=== PATIENT | female | born 1935 | race Caucasian/White ===

== ENCOUNTER 2019-11-02 21:47 | Emergency (ER) | payer OTHER ==
[~2019-11-02] VITALS: Ht 157.5 cm; Wt 81.7 kg
[~2019-11-02 21:47] MED LIST: ALBIPROI; ALBU90OI INH; ASPI81CH PO; Aspir-Trin325 MG PO; BENZ100A PO; CALCAVITD PO; CALCIUM PO; CIPR500 PO; CONESTTC PV; Colace100 MG PO; DICMIS75EC PO; DOXA2 PO; DOXA4; DOXA4 PO; ESTRTP VAG; FLOVENT; FLUC100 PO; FLUSAL1005 IH; FLUSAL1005 INH; FLUT110OIA INH; FOLI400 PO; FURO20 PO; FURO40 PO; GLUCHON PO; HYDSUL200 PO; IRON PO; LORA1; LORA1 PO; METTREX2.5 PO; MONT10T; MONT10T PO; NABU500 PO; NIAC500ER; OMEP20ER PO; ONDA4ODT MM; OXYACE5T PO; OXYC5; OXYC5 PO; Omeprazole20 M1 PO; POTA10T PO; POTCHL20ER PO; PRED20 PO; PRED5 PO; PROM25 PO; Prilosec Otc20 MG; RXONDA4ODT MM; TRAM50 PO; VALS80 PO; WARF2 PO; WARF4 PO
[2019-11-02 22:21] LABS: BASOPHILS ABSOLUTE AUTO 0.03 K/mm3 (0.00-0.23); BASOPHILS PERCENT AUTO 1 % (0-2); EOSINOPHILS ABSOLUTE AUTO 0.14 K/mm3 (0.00-0.68); EOSINOPHILS PERCENT AUTO 3 % (0-6); Hematocrit 37.5 % (33.0-51.0); Hemoglobin 11.8 g/dL (11.5-16.0); IMMATURE GRAN ABSOLUTE AUTO 0.01 K/mm3 (0.00-0.10); IMMATURE GRAN PERCENT AUTO 0 % (0-1); LYMPHOCYTES ABSOLUTE AUTO 0.91 K/mm3 (0.84-5.20); LYMPHOCYTES PERCENT AUTO 21 % (21-46); MONOCYTES ABSOLUTE AUTO 0.57 K/mm3 (0.16-1.47); MONOCYTES PERCENT AUTO 13 % (4-13); Mean Corpuscular HGB 28.4 pg (26.0-34.0); Mean Corpuscular HGB Conc 31.5 g/dL (31.5-36.5); Mean Corpuscular Volume 90 fL (80-100); Mean Platelet Volume 10.7 fL (9.1-12.4); NEUTROPHILS ABSOLUTE AUTO 2.68 K/mm3 (1.96-9.15); NEUTROPHILS PERCENT AUTO 62 % (41-73); Platelet Count 191 K/mm3 (150-400); RDW Coefficient Variation 14.5 % (11.7-14.2); RDW Standard Deviation 47.7 fL (35.1-46.3); Red Blood Cell Count 4.15 M/mm3 (3.80-5.20); White Blood Cell Count 4.34 K/mm3 (4.00-11.30)
[2019-11-02 22:39] LABS: Alanine Aminotransfer (ALT/SGP 24 U/L (12-78); Albumin, Blood 3.6 g/dL (3.4-5.0); Albumin/Globulin Ratio 1.1 (0.8-1.8); Alk Phos 99 U/L (50-136); Anion Gap 6 mmol/L (6-16); Aspartate Aminotrans (AST/SGOT 17 U/L (12-37); Bilirubin, Total 0.2 mg/dL (0.1-1.0); Blood Urea Nitrogen 23 mg/dL (8-24); Bun/Creatinine Ratio 28.9 (12.0-20.0); CO2, Blood 23 mmol/L (21-32); Calcium, Blood 8.8 mg/dL (8.5-10.1); Chloride, Blood 112 mmol/L (98-108); Globulin, Blood 3.4 g/dL (2.2-4.0); Glomerular Filtration Rate >60 (60-); Glucose, Blood 103 mg/dL (70-99); Potassium, Blood 3.9 mmol/L (3.5-5.5); Sodium, Blood 141 mmol/L (136-145)
[2019-11-02] MEDS ORDERED: Doxazosin Mesyla4 MG PO (23:05)
[2019-11-02] MEDS ORDERED: Hydroxychloroq200 MG PO (23:05)
[2019-11-02 23:51] LABS: Source, Urine Clean Catch
[2019-11-02 23:55] LABS: Appearance, Urine Hazy (Clear); Bilirubin, Urine Neg (Neg); Blood, Urine 4+ (Neg); Color, Urine Yellow (P-Yellow); Glucose Qualitative, Urine Neg (Neg); Ketones, Urine Neg (Neg); Leukocyte Esterase, Urine 3+ (Neg); Nitrite, Urine Pos (Neg); Protein, Urine Neg (Neg); Urobilinogen, Urine NORM (Normal)
[2019-11-03 00:02] LABS: Bacteria Many /hpf; Squamous Epithelial Cells Few /hpf (Few); White Blood Cells, Urine 50-100 /hpf (0-5)
[2019-11-03] MEDS ORDERED: CEFP200 PO ×2 (00:40→00:48)
== END 2019-11-03 00:55 | disposition home or self-care (01) ==
LOC: ER 21:47
PROVIDERS: Emergency Medicine
DX: N39.0 Urinary tract infection, site not specified (principal); I10 Essential (primary) hypertension; J45.909 Unspecified asthma, uncomplicated; Z88.5 Allergy status to narcotic agent; Z79.899 Other long term (current) drug therapy; Z79.51 Long term (current) use of inhaled steroids
CPT/HCPCS: 36415; 80053; 81001; 85025; 87077; 87086; 87186; 93005; 93010; 99283-25; A9270-GY

== ENCOUNTER → 2021-09-11 | Outpatient (CLI) | payer OTHER ==
[~2021-09-11] MED LIST changes: +CEFP200 PO; +Doxazosin Mesyla4 MG PO; +Hydroxychloroq200 MG PO
[2021-09-11 14:09] LABS: Source, Urine Clean Catch
[2021-09-11 15:18] LABS: Bilirubin, Urine Neg (Neg); Blood, Urine 3+ (Neg); Glucose Qualitative, Urine Neg (Neg); Ketones, Urine Neg (Neg); Leukocyte Esterase, Urine 3+ (Neg); Nitrite, Urine Neg (Neg); Protein, Urine Neg (Neg); Urobilinogen, Urine NORM (Normal)
[2021-09-11 15:32] LABS: Appearance, Urine Clear (Clear); Color, Urine Yellow (P-Yellow)
[2021-09-11 15:40] LABS: Bacteria Mod /hpf; Squamous Epithelial Cells Few /hpf (Few)
== END | disposition home or self-care (01) ==
LOC: LAB 14:00 → LAB SHORT 14:00
PROVIDERS: Internal Medicine
DX: R82.90 Unspecified abnormal findings in urine (principal)
CPT/HCPCS: 81001; 87077; 87086; 87186

== ENCOUNTER 2021-11-13 11:55 | Emergency (ER) | payer OTHER ==
[~2021-11-13] VITALS: Ht 157.5 cm; Wt 70.3 kg
[2021-11-13] MEDS ORDERED: MONT10T PO (12:19)
[2021-11-13] MEDS ORDERED: METTREX2.5 PO (12:20)
[2021-11-13] MEDS ORDERED: FLOVENT HFA12 GM (12:22)
[2021-11-13 12:36] LABS: Source, Urine Clean Catch
[2021-11-13 12:42] LABS: BASOPHILS ABSOLUTE AUTO 0.02 K/mm3 (0.00-0.23); BASOPHILS PERCENT AUTO 0 % (0-2); EOSINOPHILS ABSOLUTE AUTO 0.05 K/mm3 (0.00-0.68); EOSINOPHILS PERCENT AUTO 1 % (0-6); Hematocrit 32.4 % (33.0-51.0); Hemoglobin 10.5 g/dL (11.5-16.0); IMMATURE GRAN ABSOLUTE AUTO 0.03 K/mm3 (0.00-0.10); IMMATURE GRAN PERCENT AUTO 1 % (0-1); LYMPHOCYTES PERCENT AUTO 17 % (21-46); MONOCYTES ABSOLUTE AUTO 0.43 K/mm3 (0.16-1.47); MONOCYTES PERCENT AUTO 9 % (4-13); Mean Corpuscular HGB 27.9 pg (26.0-34.0); Mean Corpuscular HGB Conc 32.4 g/dL (31.5-36.5); Mean Corpuscular Volume 86 fL (80-100); Mean Platelet Volume 10.5 fL (9.1-12.4); NEUTROPHILS ABSOLUTE AUTO 3.53 K/mm3 (1.96-9.15); NEUTROPHILS PERCENT AUTO 73 % (41-73); Platelet Count 237 K/mm3 (150-400); RDW Coefficient Variation 13.8 % (11.7-14.2); RDW Standard Deviation 43.2 fL (35.1-46.3); Red Blood Cell Count 3.77 M/mm3 (3.80-5.20); White Blood Cell Count 4.86 K/mm3 (4.00-11.30)
[2021-11-13 12:47] LABS: Appearance, Urine Clear (Clear); Bilirubin, Urine Neg (Neg); Blood, Urine 2+ (Neg); Color, Urine Yellow (P-Yellow); Glucose Qualitative, Urine Neg (Neg); Ketones, Urine Neg (Neg); Leukocyte Esterase, Urine 3+ (Neg); Nitrite, Urine Neg (Neg); Protein, Urine Neg (Neg); Specific Gravity, Urine 1.005 (1.003-1.022); Urobilinogen, Urine NORM (Normal)
[2021-11-13 12:52] LABS: Alanine Aminotransfer (ALT/SGP 18 U/L (12-78); Albumin/Globulin Ratio 0.7 (0.8-1.8); Alk Phos 95 U/L (50-136); Anion Gap 8 mmol/L (6-16); Aspartate Aminotrans (AST/SGOT 19 U/L (12-37); Bilirubin, Total 0.5 mg/dL (0.1-1.0); Blood Urea Nitrogen 19 mg/dL (8-24); Bun/Creatinine Ratio 23.6 (12.0-20.0); CO2, Blood 25 mmol/L (21-32); Calcium, Blood 8.7 mg/dL (8.5-10.1); Chloride, Blood 106 mmol/L (98-108); Creatinine, Blood 0.81 mg/dL (0.40-1.00); Globulin, Blood 4.4 g/dL (2.2-4.0); Glomerular Filtration Rate >60 (60-); Glucose, Blood 102 mg/dL (70-99); Potassium, Blood 3.8 mmol/L (3.5-5.5); Sodium, Blood 139 mmol/L (136-145); Total Protein, Blood 7.4 g/dL (6.4-8.2)
[2021-11-13 12:55] LABS: Bacteria Few /hpf; Squamous Epithelial Cells Few /hpf (Few)
[2021-11-13] MEDS ORDERED: CEPH500 PO (14:26)
== END 2021-11-13 14:50 | disposition home or self-care (01) ==
LOC: ER 11:55
PROVIDERS: Physician Assistant
DX: N39.0 Urinary tract infection, site not specified (principal); I10 Essential (primary) hypertension; J45.909 Unspecified asthma, uncomplicated; M06.9 Rheumatoid arthritis, unspecified; Z79.82 Long term (current) use of aspirin; Z79.899 Other long term (current) drug therapy
CPT/HCPCS: 36415; 70450; 80053; 81001; 82140; 83605; 83690; 84484; 85025; 87086; 93005; 93010; 96374; 99285-25; J0696

== ENCOUNTER 2021-12-14 03:17 | Emergency (ER) | payer OTHER ==
[~2021-12-14] VITALS: Ht 157.5 cm; Wt 81.7 kg
[~2021-12-14 03:17] MED LIST changes: +CEPH500 PO; +FLOVENT HFA12 GM
[2021-12-14 04:01] LABS: BASOPHILS ABSOLUTE AUTO 0.04 K/mm3 (0.00-0.23); BASOPHILS PERCENT AUTO 1 % (0-2); EOSINOPHILS ABSOLUTE AUTO 0.14 K/mm3 (0.00-0.68); EOSINOPHILS PERCENT AUTO 2 % (0-6); Hematocrit 34.7 % (33.0-51.0); Hemoglobin 11.5 g/dL (11.5-16.0); IMMATURE GRAN ABSOLUTE AUTO 0.04 K/mm3 (0.00-0.10); IMMATURE GRAN PERCENT AUTO 1 % (0-1); LYMPHOCYTES ABSOLUTE AUTO 1.04 K/mm3 (0.84-5.20); LYMPHOCYTES PERCENT AUTO 18 % (21-46); MONOCYTES ABSOLUTE AUTO 0.57 K/mm3 (0.16-1.47); MONOCYTES PERCENT AUTO 10 % (4-13); Mean Corpuscular HGB 28.4 pg (26.0-34.0); Mean Corpuscular HGB Conc 33.1 g/dL (31.5-36.5); Mean Corpuscular Volume 86 fL (80-100); Mean Platelet Volume 10.6 fL (9.1-12.4); NEUTROPHILS ABSOLUTE AUTO 4.03 K/mm3 (1.96-9.15); NEUTROPHILS PERCENT AUTO 69 % (41-73); Platelet Count 186 K/mm3 (150-400); RDW Coefficient Variation 14.5 % (11.7-14.2); RDW Standard Deviation 45.3 fL (35.1-46.3); Red Blood Cell Count 4.05 M/mm3 (3.80-5.20); White Blood Cell Count 5.86 K/mm3 (4.00-11.30)
[2021-12-14 04:38] LABS: Albumin, Blood 3.2 g/dL (3.4-5.0); Albumin/Globulin Ratio 0.8 (0.8-1.8); Bilirubin, Total 0.4 mg/dL (0.1-1.0); Bun/Creatinine Ratio 23.9 (12.0-20.0); Creatinine, Blood 0.92 mg/dL (0.40-1.00); Globulin, Blood 3.8 g/dL (2.2-4.0); Potassium, Blood 4.3 mmol/L (3.5-5.5)
[2021-12-14] MEDS ORDERED: FAMO20 PO (05:34)
== END 2021-12-14 05:51 | disposition home or self-care (01) ==
LOC: ER 03:17
PROVIDERS: Student in an Organized Health Care Education/Training Program
DX: K29.70 Gastritis, unspecified, without bleeding (principal); I10 Essential (primary) hypertension; M06.9 Rheumatoid arthritis, unspecified; Z79.899 Other long term (current) drug therapy
CPT/HCPCS: 80053; 82248; 83690; 85025; 93005; 93010; 96374; 99284-25; A9270

== ENCOUNTER → 2022-03-21 | Outpatient (CLI) | payer OTHER ==
[~2022-03-21] MED LIST changes: +FAMO20 PO
== END | disposition home or self-care (01) ==
LOC: PLD 15:07 → LAB SHORT 15:07
DX: L57.0 Actinic keratosis (principal)
CPT/HCPCS: 88305

== ENCOUNTER 2022-07-22 09:26 | Inpatient (IN) | payer OTHER ==
[~2022-07-22] VITALS: Ht 157.5 cm; Wt 845.5 kg
[2022-07-22 10:33] LABS: Source, Urine Clean Catch
[2022-07-22 10:38] LABS: Appearance, Urine Clear (Clear); Bilirubin, Urine Neg (Neg); Blood, Urine 2+ (Neg); Color, Urine Yellow (P-Yellow); Glucose Qualitative, Urine Neg (Neg); Ketones, Urine Neg (Neg); Leukocyte Esterase, Urine Neg (Neg); Nitrite, Urine Neg (Neg); Protein, Urine Neg (Neg); Urobilinogen, Urine NORM (Normal)
[2022-07-22 10:58] LABS: Bacteria Rare /hpf; Squamous Epithelial Cells Rare /hpf (Few); White Blood Cells, Urine 0-2 /hpf (0-5)
[2022-07-22 11:25] LABS: BASOPHILS ABSOLUTE AUTO 0.02 K/mm3 (0.00-0.23); BASOPHILS PERCENT AUTO 0 % (0-2); EOSINOPHILS ABSOLUTE AUTO 0.01 K/mm3 (0.00-0.68); EOSINOPHILS PERCENT AUTO 0 % (0-6); Hematocrit 36.5 % (33.0-51.0); Hemoglobin 11.6 g/dL (11.5-16.0); IMMATURE GRAN ABSOLUTE AUTO 0.23 K/mm3 (0.00-0.10); IMMATURE GRAN PERCENT AUTO 2 % (0-1); LYMPHOCYTES ABSOLUTE AUTO 0.56 K/mm3 (0.84-5.20); LYMPHOCYTES PERCENT AUTO 4 % (21-46); MONOCYTES ABSOLUTE AUTO 0.61 K/mm3 (0.16-1.47); MONOCYTES PERCENT AUTO 5 % (4-13); Mean Corpuscular HGB 29.4 pg (26.0-34.0); Mean Corpuscular HGB Conc 31.8 g/dL (31.5-36.5); Mean Corpuscular Volume 93 fL (80-100); Mean Platelet Volume 10.3 fL (9.1-12.4); NEUTROPHILS ABSOLUTE AUTO 11.33 K/mm3 (1.96-9.15); NEUTROPHILS PERCENT AUTO 89 % (41-73); Platelet Count 151 K/mm3 (150-400); RDW Coefficient Variation 15.7 % (11.7-14.2); RDW Standard Deviation 52.4 fL (35.1-46.3); Red Blood Cell Count 3.94 M/mm3 (3.80-5.20); White Blood Cell Count 12.76 K/mm3 (4.00-11.30)
[2022-07-22 11:40] LABS: Albumin, Blood 3.3 g/dL (3.4-5.0); Bilirubin, Total 0.5 mg/dL (0.1-1.0); Bun/Creatinine Ratio 25.7 (12.0-20.0); Calcium, Blood 8.7 mg/dL (8.5-10.1); Creatinine, Blood 1.01 mg/dL (0.40-1.00); Globulin, Blood 3.2 g/dL (2.2-4.0); Potassium, Blood 3.8 mmol/L (3.5-5.5); Total Protein, Blood 6.5 g/dL (6.4-8.2)
[2022-07-22 15:32] LABS: Bicarbonate Venous 27.9 mmol/L (24.0-30.0); PCO2 Venous 47.5 mmHg (38-42); PO2 Venous 46.3 mmHg (38-42); pH Blood Venous 7.41 (7.34-7.37)
[2022-07-22 15:54] LABS: Free Thyroxine 0.85 ng/dL (0.70-1.60); Prolactin 12.3 ng/mL (2.74-19.64); Thyroid Stimulating Hormone 0.18 uIU/mL (0.360-4.800); Triiodothyronine, Free 2.73 pg/mL (2.18-3.98)
--- NOTE | 2022-07-22 18:11 | NUR ---
PT ARRIVED FROM ED. PT ALERT AND ORIENTED, PERIODICAL CONFUSION, REDIRECTABLE. PT ATTEMPTING TO REMOVE IV AND GET OUT OF BED FREQUENTLY. REDIRECTED TO STAY IN BED. BED ALARM SET. SIDERAILS UP X 3. CALL LIGHT WITHIN REACH.
[2022-07-22 20:12] LABS: U Amphetamine Screen Not Detected; U Barbituate Screen Not Detected; U Benzodiazapine Screen Not Detected; U Buprenorphine Screen Not Detected; U Cannabinoids Screen Not Detected; U Cocaine Screen Not Detected; U Methadone Screen Not Detected; U Methamphetamine Screen Not Detected; U Opiates Screen Not Detected; U Oxycodone Screen DETECTED; U Phencyclidine Screen Not Detected; U Propoxyphene Screen Not Detected
--- NOTE | 2022-07-22 21:03 | NUR ---
MULTIPLE TIMES OUT OF BED TO "GO TO THE BATHROOM". AND "I DONT KNOW" WHEN ASKED WHY SHE WAS TRYING TO GET OUT OF BED. CONFUSION CONTINUES. ENCOURAGED TO STAY IN BED TO SLEEP. BED ALARM ON AND PLACED ON CAMERA FOR SAFETY BUT RESTLESSNESS AND AGITATION CONTINUED. CALL PLACED TO MD, ORDERS FOR SEROQUEL OBTAINED AND GIVEN. CALL LIGHT IN REACH.
--- NOTE | 2022-07-23 03:08 | NUR ---
RENDERING EQUIPMENT TENDER SUMMARY WAS ADMITTED YESTERDAY WITH ENCEPHALOPATHY AFTER REPORTEDLY WAKING UP CONFUSED AT HOME. HX OF DEMENTIA AND HTN. HAS BEEN RESTLESS AND DIFFICULT TO REDIRECT THIS SHIFT. MD WAS NOTIFIED AND SERAQUEL WAS ORDERED. MED GIVEN BUT REMAINS RESTLESS WITH BOUTS OF ANXIETY. WILL CONTINUE TO REDIRECT AND MONITOR FOR SAFETY. ON CAMERA AND BED ALARM IN USE. FLUID RESTRICTION CONTINUES. CALL LIGHT IN REACH
--- NOTE | 2022-07-23 18:28 | NUR ---
SHIFT SUMMARY PT WAS CALM AND COOPERATIVE THIS SHIFT, BUT WITH PERIODS OF CONFUSION. SHE IS NOW OWNING AND YELLING OUT THINKING SHE IS AT HOME. EVEN DURING THE DAY SHE IS IMPULSIVE AND TRIES TO GET UP BUT CAN BE DIRECTED TO GET IN BED. PT WAS GIVEN A PRN THIS EVENING TO HELP WITH ANXIETY. NO NEW DEVELOPMENTS TO WHY THE PT HAS BECOME CONFUSED. BED IN LOWEST POSITION AND CALL LIGHT IN REACH.
[2022-07-24 04:54] LABS: BASOPHILS ABSOLUTE AUTO 0.02 K/mm3 (0.00-0.23); BASOPHILS PERCENT AUTO 0 % (0-2); EOSINOPHILS ABSOLUTE AUTO 0.07 K/mm3 (0.00-0.68); EOSINOPHILS PERCENT AUTO 1 % (0-6); Hematocrit 35.7 % (33.0-51.0); Hemoglobin 11.3 g/dL (11.5-16.0); IMMATURE GRAN ABSOLUTE AUTO 0.05 K/mm3 (0.00-0.10); IMMATURE GRAN PERCENT AUTO 1 % (0-1); LYMPHOCYTES ABSOLUTE AUTO 1.57 K/mm3 (0.84-5.20); LYMPHOCYTES PERCENT AUTO 21 % (21-46); MONOCYTES ABSOLUTE AUTO 0.46 K/mm3 (0.16-1.47); MONOCYTES PERCENT AUTO 6 % (4-13); Mean Corpuscular HGB Conc 31.7 g/dL (31.5-36.5); Mean Corpuscular Volume 92 fL (80-100); Mean Platelet Volume 10.9 fL (9.1-12.4); NEUTROPHILS ABSOLUTE AUTO 5.16 K/mm3 (1.96-9.15); NEUTROPHILS PERCENT AUTO 70 % (41-73); Platelet Count 148 K/mm3 (150-400); RDW Coefficient Variation 15.4 % (11.7-14.2); RDW Standard Deviation 50.8 fL (35.1-46.3); Red Blood Cell Count 3.89 M/mm3 (3.80-5.20); White Blood Cell Count 7.33 K/mm3 (4.00-11.30)
[2022-07-24 05:22] LABS: Albumin, Blood 3.1 g/dL (3.4-5.0); Anion Gap 7 mmol/L (6-16); Blood Urea Nitrogen 32 mg/dL (8-24); Bun/Creatinine Ratio 21.5 (12.0-20.0); CO2, Blood 26 mmol/L (21-32); Calcium, Blood 8.1 mg/dL (8.5-10.1); Chloride, Blood 110 mmol/L (98-108); Creatinine, Blood 1.49 mg/dL (0.40-1.00); Glomerular Filtration Rate 34 (60-); Glucose, Blood 97 mg/dL (70-99); Phosphorus, Blood 3.4 mg/dL (2.5-4.9); Potassium, Blood 3.7 mmol/L (3.5-5.5); Sodium, Blood 143 mmol/L (136-145)
--- NOTE | 2022-07-24 06:42 | NUR ---
SHIFT SUMMARY PATIENT ALERT AND ORIENTED X2. HAD NO COMPLAINTS OF PAIN OR SHORTNESS OF BREATH. NO ACUTE ISSUES NOTED OVERNIGHT. CALL LIGHT WITHIN REACH. REPORT GIVEN TO ONCOMING RN. REPORT GIVEN TO ONCOMING RN.
--- NOTE | 2022-07-24 18:29 | NUR ---
SHIFT SUMMARY PT PLEASANT & COOPERATIVE THIS SHIFT. PT APPEARS TO HAVE A CLEARER MENTATION TODAY PER HER DAUGHTER. STILL VERY FORGETFUL AND CONFUSED THO. IV PLACED FOR IV HYDRATION X1 BAG OF NS. NO OTHER ACUTE CHANGES IN ASSESSMENT AT THIS TIME. VS REVIEWED. PT UP IN CHAIR TALKING ON THE PHONE.
--- NOTE | 2022-07-25 00:59 | NUR ---
PHYSICIAN COMMUNICATION CONTACTED DR CURTIS TO NOTIFY HIM THAT THE PATIENT IS VERY RESTLESS AND COMPLAINING OF RESTLESS LEGS AND KNEE PAIN. DR CURTIS ORDERED A ONE TIME DOSE OF ATIVAN 0.5 MG PO.
--- NOTE | 2022-07-25 05:29 | NUR ---
SHIFT SUMMARY PATIENT ALERT AND ORIENTED X2. MEDICATED PER EMAR FOR AGITATION AND RESTLESSNESS. PATIENT UNABLE TO SLEEP OVERNIGHT. NO ACUTE ISSUES NOTED. CALL LIGHT WITHIN REACH. REPORT GIVEN TO ONCOMING RN.
[2022-07-25 06:07] LABS: Anion Gap 6 mmol/L (6-16); Blood Urea Nitrogen 33 mg/dL (8-24); Bun/Creatinine Ratio 24.3 (12.0-20.0); CO2, Blood 24 mmol/L (21-32); Calcium, Blood 8.5 mg/dL (8.5-10.1); Chloride, Blood 112 mmol/L (98-108); Creatinine, Blood 1.36 mg/dL (0.40-1.00); Glomerular Filtration Rate 38 (60-); Glucose, Blood 100 mg/dL (70-99); Phosphorus, Blood 2.3 mg/dL (2.5-4.9); Potassium, Blood 3.8 mmol/L (3.5-5.5); Sodium, Blood 142 mmol/L (136-145)
--- NOTE | 2022-07-25 10:29 | NUR ---
RN NOTE MS COLLAZO IS ORIENTATED TO SELF AND HOSPITAL. BUT SAID THE HOSPITAL IS IN [place], NOT ORIENTATED TO DATE. REMINDED FREQUENTLY NOT TO GET UP OUT OF BED/CHAIR WITHOUT STANDBY ASSISTANCE. BED AND CHAIR ALARMS USED. PLAN FOR DISCHARGE TODAY - I SPOKE TO HER DAUGHTER IN LAW WHOM SHE LIVES WITH AND IS HER PUBLIC HEALTH PROGRAM MANAGER AND SHE SAID THAT SHE CAN COME MID AFTERNOON TO PICK HER UP. SHE SAID THAT AT HOME SHE IS ORIENTATED TO HERSELF AND LOCATION, BUT SOMETIMES FORGETS THE HOUSE AND WHERE THINGS ARE, NOT TO DATE. NO PIV IN PLACE SHE PULLED IT OUT ON MANUFACTURING TEST ENGINEER, NOT REPLACED PLAN FOR DC TODAY.
[2022-07-25] MEDS ORDERED: AMLO10 PO (15:20)
--- NOTE | 2022-07-25 15:45 | NUR ---
DISCHARGE NOTE MS COLLAZO IS ALERT, ORIENTATED TO SELF. BED AND CHAIR ALARMS USED PT FORGETS TO USE THE CALL LIGHT. 1 PERSON STAND BY ASSIST TO TRANSFER. DISCHARGED TO HOME AT 1537 WITH HER DAUGHTER IN LAW. QAMAR, PHARMACIST, CAME AND EDUCATED DAUGHTER IN LAW ON HOME MEDICATION PLAN. SHE VERBALISED UNDERSTANDING OF WRITTEN AND VERBAL DISCHARGE INSTRUCTIONS. NO PIV IN. PT WAS ASSISTED TO DRESS, DAUGHTER IN LAW SAID SHE HAD HER BELONGINGS. PT ESCORTED OUT FOR DISCHARGE VIA WHEELCHAIR.
== END 2022-07-25 15:37 | disposition home or self-care (01) | DRG 682 ==
LOC: ER 09:26 → MEDS 09:27
PROVIDERS: Physician Assistant; ADMIT Internal Medicine
DX: N17.9 Acute kidney failure, unspecified (principal); G93.41 Metabolic encephalopathy; I50.32 Chronic diastolic (congestive) heart failure; F05 Delirium due to known physiological condition; J45.909 Unspecified asthma, uncomplicated; K21.9 Gastro-esophageal reflux disease without esophagitis; M06.9 Rheumatoid arthritis, unspecified; D72.829 Elevated white blood cell count, unspecified; R09.02 Hypoxemia; G47.33 Obstructive sleep apnea (adult) (pediatric); F03.90 Unspecified dementia, unspecified severity, without behavioral disturbance, psychotic disturbance, mood disturbance, and anxiety; Z88.1 Allergy status to other antibiotic agents; Z88.8 Allergy status to other drugs, medicaments and biological substances; Z88.5 Allergy status to narcotic agent; Z98.49 Cataract extraction status, unspecified eye; Z79.899 Other long term (current) drug therapy; Z79.82 Long term (current) use of aspirin; E86.0 Dehydration
CPT/HCPCS: 36415; 70450; 71045; 74176; 80053; 80069; 81001; 82607; 82803; 83605; 83690; 84145; 84146; 84439; 84443; 84481; 84484; 85025; 93005; 93010; 94640; 94664; 94760; 96361; 96374; 99285-25; A9270; G0378; J2405; J7030; J8610

== ENCOUNTER 2022-07-27 14:13 | Emergency (ER) | payer OTHER ==
[~2022-07-27] VITALS: Ht 157.5 cm; Wt 83.9 kg
[~2022-07-27 14:13] MED LIST changes: +AMLO10 PO
[2022-07-27 15:00] LABS: BASOPHILS ABSOLUTE AUTO 0.02 K/mm3 (0.00-0.23); BASOPHILS PERCENT AUTO 0 % (0-2); EOSINOPHILS PERCENT AUTO 0 % (0-6); Hematocrit 31.1 % (33.0-51.0); Hemoglobin 10.2 g/dL (11.5-16.0); IMMATURE GRAN PERCENT AUTO 1 % (0-1); LYMPHOCYTES ABSOLUTE AUTO 0.37 K/mm3 (0.84-5.20); LYMPHOCYTES PERCENT AUTO 4 % (21-46); MONOCYTES ABSOLUTE AUTO 0.12 K/mm3 (0.16-1.47); MONOCYTES PERCENT AUTO 1 % (4-13); Mean Corpuscular HGB 30.4 pg (26.0-34.0); Mean Corpuscular HGB Conc 32.8 g/dL (31.5-36.5); Mean Corpuscular Volume 93 fL (80-100); NEUTROPHILS ABSOLUTE AUTO 8.33 K/mm3 (1.96-9.15); NEUTROPHILS PERCENT AUTO 93 % (41-73); Platelet Count 171 K/mm3 (150-400); RDW Coefficient Variation 15.8 % (11.7-14.2); RDW Standard Deviation 52.9 fL (35.1-46.3); Red Blood Cell Count 3.35 M/mm3 (3.80-5.20); White Blood Cell Count 8.94 K/mm3 (4.00-11.30)
[2022-07-27 15:51] LABS: Albumin, Blood 3.3 g/dL (3.4-5.0); Albumin/Globulin Ratio 1.1 (0.8-1.8); Bilirubin, Total 0.5 mg/dL (0.1-1.0); Bun/Creatinine Ratio 30.6 (12.0-20.0); Calcium, Blood 9.1 mg/dL (8.5-10.1); Creatinine, Blood 1.21 mg/dL (0.40-1.00); Globulin, Blood 3.1 g/dL (2.2-4.0); Potassium, Blood 4.5 mmol/L (3.5-5.5); Total Protein, Blood 6.4 g/dL (6.4-8.2)
== END 2022-07-27 18:46 | disposition home or self-care (01) ==
LOC: ER 14:13
PROVIDERS: Physician Assistant
DX: R07.9 Chest pain, unspecified (principal); K44.9 Diaphragmatic hernia without obstruction or gangrene; M79.89 Other specified soft tissue disorders; I10 Essential (primary) hypertension; J45.909 Unspecified asthma, uncomplicated; F03.90 Unspecified dementia, unspecified severity, without behavioral disturbance, psychotic disturbance, mood disturbance, and anxiety; Z79.899 Other long term (current) drug therapy; Z79.82 Long term (current) use of aspirin
CPT/HCPCS: 36415; 71045; 80053; 84484; 85025; 93005; 93010

== ENCOUNTER 2022-08-12 04:13 | Emergency (ER) | payer OTHER ==
[~2022-08-12] VITALS: Ht 157.5 cm; Wt 72.6 kg
[2022-08-12] MEDS ORDERED: Prednisone10 MG PO (05:04)
[2022-08-12 05:09] LABS: BASOPHILS ABSOLUTE AUTO 0.03 K/mm3 (0.00-0.23); BASOPHILS PERCENT AUTO 0 % (0-2); EOSINOPHILS ABSOLUTE AUTO 0.03 K/mm3 (0.00-0.68); EOSINOPHILS PERCENT AUTO 0 % (0-6); Hematocrit 35.1 % (33.0-51.0); Hemoglobin 11.4 g/dL (11.5-16.0); IMMATURE GRAN ABSOLUTE AUTO 0.37 K/mm3 (0.00-0.10); IMMATURE GRAN PERCENT AUTO 5 % (0-1); LYMPHOCYTES ABSOLUTE AUTO 1.35 K/mm3 (0.84-5.20); LYMPHOCYTES PERCENT AUTO 17 % (21-46); MONOCYTES ABSOLUTE AUTO 0.83 K/mm3 (0.16-1.47); MONOCYTES PERCENT AUTO 10 % (4-13); Mean Corpuscular HGB 30.3 pg (26.0-34.0); Mean Corpuscular HGB Conc 32.5 g/dL (31.5-36.5); Mean Corpuscular Volume 93 fL (80-100); Mean Platelet Volume 10.5 fL (9.1-12.4); NEUTROPHILS ABSOLUTE AUTO 5.47 K/mm3 (1.96-9.15); NEUTROPHILS PERCENT AUTO 68 % (41-73); Platelet Count 189 K/mm3 (150-400); RDW Coefficient Variation 16.2 % (11.7-14.2); RDW Standard Deviation 54.4 fL (35.1-46.3); Red Blood Cell Count 3.76 M/mm3 (3.80-5.20); White Blood Cell Count 8.08 K/mm3 (4.00-11.30)
[2022-08-12 05:23] LABS: Albumin, Blood 3.3 g/dL (3.4-5.0); Bilirubin, Total 0.2 mg/dL (0.1-1.0); Bun/Creatinine Ratio 22.3 (12.0-20.0); Calcium, Blood 8.6 mg/dL (8.5-10.1); Creatinine, Blood 1.39 mg/dL (0.40-1.00); Globulin, Blood 3.3 g/dL (2.2-4.0); Magnesium, Blood 2.7 mg/dL (1.6-2.4); Potassium, Blood 3.9 mmol/L (3.5-5.5); Prolactin 12.4 ng/mL (2.74-19.64); Total Protein, Blood 6.6 g/dL (6.4-8.2)
[2022-08-12 06:19] LABS: Base Excess Venous 3.6 mmol/L; Bicarbonate Venous 26.8 mmol/L (24.0-30.0); PCO2 Venous 46.5 mmHg (38-42)
== END 2022-08-12 07:33 | disposition home or self-care (01) ==
LOC: ER 04:13
PROVIDERS: Student in an Organized Health Care Education/Training Program
DX: R56.9 Unspecified convulsions (principal); I10 Essential (primary) hypertension; Z79.899 Other long term (current) drug therapy; Z79.82 Long term (current) use of aspirin; Z79.52 Long term (current) use of systemic steroids
CPT/HCPCS: 36415; 70450; 71045; 80053; 82803; 83735; 84146; 85025; 93005; 93010; J2060

== ENCOUNTER 2022-09-17 11:05 | Emergency (ER) | payer OTHER ==
[~2022-09-17] VITALS: Ht 157.5 cm; Wt 83.9 kg
[~2022-09-17 11:05] MED LIST changes: +Prednisone10 MG PO
[2022-09-17 12:50] LABS: BASOPHILS ABSOLUTE AUTO 0.02 K/mm3 (0.00-0.23); BASOPHILS PERCENT AUTO 0 % (0-2); EOSINOPHILS ABSOLUTE AUTO 0.03 K/mm3 (0.00-0.68); EOSINOPHILS PERCENT AUTO 0 % (0-6); Hematocrit 32.3 % (33.0-51.0); Hemoglobin 10.4 g/dL (11.5-16.0); IMMATURE GRAN ABSOLUTE AUTO 0.06 K/mm3 (0.00-0.10); IMMATURE GRAN PERCENT AUTO 1 % (0-1); LYMPHOCYTES ABSOLUTE AUTO 0.41 K/mm3 (0.84-5.20); LYMPHOCYTES PERCENT AUTO 5 % (21-46); MONOCYTES ABSOLUTE AUTO 0.66 K/mm3 (0.16-1.47); MONOCYTES PERCENT AUTO 9 % (4-13); Mean Corpuscular HGB 29.6 pg (26.0-34.0); Mean Corpuscular HGB Conc 32.2 g/dL (31.5-36.5); Mean Corpuscular Volume 92 fL (80-100); Mean Platelet Volume 10.6 fL (9.1-12.4); NEUTROPHILS ABSOLUTE AUTO 6.48 K/mm3 (1.96-9.15); NEUTROPHILS PERCENT AUTO 85 % (41-73); Platelet Count 187 K/mm3 (150-400); RDW Coefficient Variation 16.2 % (11.7-14.2); RDW Standard Deviation 54.1 fL (35.1-46.3); Red Blood Cell Count 3.51 M/mm3 (3.80-5.20); White Blood Cell Count 7.66 K/mm3 (4.00-11.30)
[2022-09-17 13:14] LABS: Source, Urine Clean Catch
[2022-09-17 13:16] LABS: Appearance, Urine Hazy (Clear); Bilirubin, Urine Neg (Neg); Blood, Urine 3+ (Neg); Color, Urine Yellow (P-Yellow); Glucose Qualitative, Urine Neg (Neg); Ketones, Urine Neg (Neg); Leukocyte Esterase, Urine 3+ (Neg); Nitrite, Urine Neg (Neg); Protein, Urine Neg (Neg); Urobilinogen, Urine NORM (Normal)
[2022-09-17 13:31] LABS: Bacteria Mod /hpf; Squamous Epithelial Cells Few /hpf (Few)
[2022-09-17] MEDS ORDERED: NITR100CA PO (13:49)
[2022-09-17 13:55] LABS: Albumin, Blood 3.3 g/dL (3.4-5.0); Bilirubin, Total 0.6 mg/dL (0.1-1.0); Bun/Creatinine Ratio 20.7 (12.0-20.0); Calcium, Blood 9.2 mg/dL (8.5-10.1); Creatinine, Blood 1.35 mg/dL (0.40-1.00); Globulin, Blood 3.4 g/dL (2.2-4.0); Potassium, Blood 4.6 mmol/L (3.5-5.5); Total Protein, Blood 6.7 g/dL (6.4-8.2)
== END 2022-09-17 14:18 | disposition home or self-care (01) ==
LOC: ER 11:05
PROVIDERS: Physician Assistant
DX: N39.0 Urinary tract infection, site not specified (principal); R53.81 Other malaise; I10 Essential (primary) hypertension; J45.909 Unspecified asthma, uncomplicated; M06.9 Rheumatoid arthritis, unspecified; K21.9 Gastro-esophageal reflux disease without esophagitis; Z88.8 Allergy status to other drugs, medicaments and biological substances; Z88.1 Allergy status to other antibiotic agents; Z88.5 Allergy status to narcotic agent; Z88.6 Allergy status to analgesic agent; Z79.82 Long term (current) use of aspirin; Z79.899 Other long term (current) drug therapy; W18.30XA Fall on same level, unspecified, initial encounter
CPT/HCPCS: 36415; 80053; 81001; 83735; 85025; 87086; 93005; 93010; J7030

== ENCOUNTER 2022-09-20 16:01 | Emergency (ER) | payer OTHER ==
[~2022-09-20] VITALS: Ht 157.5 cm; Wt 83.9 kg
[~2022-09-20 16:01] MED LIST changes: +NITR100CA PO
[2022-09-20 16:57] LABS: BASOPHILS ABSOLUTE AUTO 0.03 K/mm3 (0.00-0.23); BASOPHILS PERCENT AUTO 1 % (0-2); EOSINOPHILS ABSOLUTE AUTO 0.03 K/mm3 (0.00-0.68); EOSINOPHILS PERCENT AUTO 1 % (0-6); Hematocrit 26.4 % (33.0-51.0); Hemoglobin 9.2 g/dL (11.5-16.0); IMMATURE GRAN ABSOLUTE AUTO 0.07 K/mm3 (0.00-0.10); IMMATURE GRAN PERCENT AUTO 1 % (0-1); LYMPHOCYTES ABSOLUTE AUTO 0.65 K/mm3 (0.84-5.20); LYMPHOCYTES PERCENT AUTO 11 % (21-46); MONOCYTES ABSOLUTE AUTO 0.56 K/mm3 (0.16-1.47); MONOCYTES PERCENT AUTO 10 % (4-13); Mean Corpuscular HGB Conc 34.8 g/dL (31.5-36.5); Mean Corpuscular Volume 86 fL (80-100); Mean Platelet Volume 10.5 fL (9.1-12.4); NEUTROPHILS ABSOLUTE AUTO 4.46 K/mm3 (1.96-9.15); NEUTROPHILS PERCENT AUTO 77 % (41-73); Platelet Count 183 K/mm3 (150-400); RDW Coefficient Variation 15.9 % (11.7-14.2); RDW Standard Deviation 49.1 fL (35.1-46.3); Red Blood Cell Count 3.07 M/mm3 (3.80-5.20)
[2022-09-20 17:14] LABS: Albumin, Blood 3.4 g/dL (3.4-5.0); Albumin/Globulin Ratio 1.1 (0.8-1.8); Bilirubin, Total 0.9 mg/dL (0.1-1.0); Bun/Creatinine Ratio 19.1 (12.0-20.0); Calcium, Blood 9.1 mg/dL (8.5-10.1); Creatinine, Blood 1.31 mg/dL (0.40-1.00); Globulin, Blood 3.2 g/dL (2.2-4.0); Potassium, Blood 4.1 mmol/L (3.5-5.5); Total Protein, Blood 6.6 g/dL (6.4-8.2)
[2022-09-20] MEDS ORDERED: Nitrofurantoin100 M1 PO (17:32)
[2022-09-20] MEDS ORDERED: FAMO20 PO (17:34)
[2022-09-20] MEDS ORDERED: PRED5 PO (17:36)
[2022-09-20] MEDS ORDERED: METHOTREXATE2.5 M1 PO (17:38)
[2022-09-20] MEDS ORDERED: DOXAZOSIN MESYLA4 M2 PO (17:40)
[2022-09-20] MEDS ORDERED: VALSARTAN160 MG PO (17:40)
[2022-09-20 19:17] LABS: Source, Urine Straight Cath
[2022-09-20 19:23] LABS: Appearance, Urine Clear (Clear); Bilirubin, Urine Neg (Neg); Blood, Urine 3+ (Neg); Color, Urine Yellow (P-Yellow); Glucose Qualitative, Urine Neg (Neg); Ketones, Urine Neg (Neg); Leukocyte Esterase, Urine Neg (Neg); Nitrite, Urine Neg (Neg); Protein, Urine Neg (Neg); Urobilinogen, Urine NORM (Normal)
[2022-09-20 19:33] LABS: Bacteria Many /hpf; Squamous Epithelial Cells Rare /hpf (Few); White Blood Cells, Urine 0-2 /hpf (0-5)
[2022-09-20] MEDS ORDERED: PRAMIPEXOLE D0.25 M1 PO (20:06)
[2022-09-20] MEDS ORDERED: Bactrim Ds Tab1 EACH PO (21:35)
== END 2022-09-20 22:11 | disposition home or self-care (01) ==
LOC: ER 16:01
PROVIDERS: Emergency Medicine; Physician Assistant
DX: N39.0 Urinary tract infection, site not specified (principal); I10 Essential (primary) hypertension; G30.9 Alzheimer's disease, unspecified; F02.80 Dementia in other diseases classified elsewhere, unspecified severity, without behavioral disturbance, psychotic disturbance, mood disturbance, and anxiety; Z79.899 Other long term (current) drug therapy; Z79.52 Long term (current) use of systemic steroids; Z79.82 Long term (current) use of aspirin; Z88.8 Allergy status to other drugs, medicaments and biological substances; Z88.5 Allergy status to narcotic agent
CPT/HCPCS: 36415; 70450; 80053; 81001; 85025; 87077; 87086; 87186; A9270

== ENCOUNTER 2022-10-05 18:11 | Inpatient (IN) | payer OTHER ==
[~2022-10-05] VITALS: Ht 157.5 cm; Wt 84.4 kg
[~2022-10-05 18:11] MED LIST changes: +Bactrim Ds Tab1 EACH PO; +CALCIUM 600-VI1 EAC6 PO; -CALCIUM PO; +DOXAZOSIN MESYLA4 M2 PO; +METHOTREXATE2.5 M1 PO; +Nitrofurantoin100 M1 PO; +PRAMIPEXOLE D0.25 M1 PO; +VALSARTAN160 MG PO
[2022-10-05 19:30] LABS: BASOPHILS ABSOLUTE AUTO 0.03 K/mm3 (0.00-0.23); BASOPHILS PERCENT AUTO 0 % (0-2); EOSINOPHILS ABSOLUTE AUTO 0.02 K/mm3 (0.00-0.68); EOSINOPHILS PERCENT AUTO 0 % (0-6); IMMATURE GRAN ABSOLUTE AUTO 0.07 K/mm3 (0.00-0.10); IMMATURE GRAN PERCENT AUTO 1 % (0-1); LYMPHOCYTES ABSOLUTE AUTO 0.99 K/mm3 (0.84-5.20); LYMPHOCYTES PERCENT AUTO 14 % (21-46); MONOCYTES ABSOLUTE AUTO 0.28 K/mm3 (0.16-1.47); MONOCYTES PERCENT AUTO 4 % (4-13); Mean Corpuscular HGB 29.1 pg (26.0-34.0); Mean Corpuscular Volume 94 fL (80-100); Mean Platelet Volume 9.7 fL (9.1-12.4); NEUTROPHILS PERCENT AUTO 80 % (41-73); Platelet Count 184 K/mm3 (150-400); RDW Coefficient Variation 16.4 % (11.7-14.2); RDW Standard Deviation 55.2 fL (35.1-46.3); Red Blood Cell Count 3.09 M/mm3 (3.80-5.20); White Blood Cell Count 6.99 K/mm3 (4.00-11.30)
[2022-10-05 19:48] LABS: Albumin, Blood 3.5 g/dL (3.4-5.0); Bilirubin, Total 0.3 mg/dL (0.1-1.0); Bun/Creatinine Ratio 18.5 (12.0-20.0); Calcium, Blood 8.9 mg/dL (8.5-10.1); Globulin, Blood 3.4 g/dL (2.2-4.0); Potassium, Blood 4.5 mmol/L (3.5-5.5); Total Protein, Blood 6.9 g/dL (6.4-8.2)
[2022-10-05 22:37] LABS: Source, Urine Clean Catch
[2022-10-05 22:43] LABS: Bilirubin, Urine Neg (Neg); Blood, Urine 4+ (Neg); Glucose Qualitative, Urine Neg (Neg); Ketones, Urine Neg (Neg); Leukocyte Esterase, Urine 3+ (Neg); Nitrite, Urine Neg (Neg); Protein, Urine Neg (Neg); Specific Gravity, Urine 1.015 (1.003-1.022); Urobilinogen, Urine NORM (Normal)
[2022-10-05 22:46] LABS: Appearance, Urine Clear (Clear); Color, Urine Yellow (P-Yellow)
[2022-10-05 22:56] LABS: Amorphous Light (0-Heavy); Bacteria Few /hpf; Red Blood Cells, Urine 0-2 /hpf (0-2); Squamous Epithelial Cells Few /hpf (Few); White Blood Cells, Urine 50-100 /hpf (0-5)
--- NOTE | 2022-10-06 05:07 | NUR ---
Patient admitted from ED, unable to complete admission as patient poor historian, daughter is to return tomorrow and admission will need to be completed then. Patient resting in room at this time, bed alarm activated as patient is impulsive.
[2022-10-06 06:25] LABS: BASOPHILS ABSOLUTE AUTO 0.03 K/mm3 (0.00-0.23); BASOPHILS PERCENT AUTO 1 % (0-2); EOSINOPHILS ABSOLUTE AUTO 0.07 K/mm3 (0.00-0.68); EOSINOPHILS PERCENT AUTO 1 % (0-6); Hematocrit 26.5 % (33.0-51.0); Hemoglobin 8.5 g/dL (11.5-16.0); IMMATURE GRAN ABSOLUTE AUTO 0.05 K/mm3 (0.00-0.10); IMMATURE GRAN PERCENT AUTO 1 % (0-1); LYMPHOCYTES ABSOLUTE AUTO 1.27 K/mm3 (0.84-5.20); LYMPHOCYTES PERCENT AUTO 20 % (21-46); MONOCYTES ABSOLUTE AUTO 0.33 K/mm3 (0.16-1.47); MONOCYTES PERCENT AUTO 5 % (4-13); Mean Corpuscular HGB 30.2 pg (26.0-34.0); Mean Corpuscular HGB Conc 32.1 g/dL (31.5-36.5); Mean Corpuscular Volume 94 fL (80-100); Mean Platelet Volume 9.9 fL (9.1-12.4); NEUTROPHILS ABSOLUTE AUTO 4.59 K/mm3 (1.96-9.15); NEUTROPHILS PERCENT AUTO 72 % (41-73); Platelet Count 156 K/mm3 (150-400); RDW Coefficient Variation 16.3 % (11.7-14.2); RDW Standard Deviation 55.4 fL (35.1-46.3); Red Blood Cell Count 2.81 M/mm3 (3.80-5.20); White Blood Cell Count 6.34 K/mm3 (4.00-11.30)
[2022-10-06 06:26] LABS: IMMATURE RETIC FRACTION 16.2 % (2.3-16.0); RETIC HGB EQUIVALENT 36.4 pg (28.20-36.60); RETICULOCYTE ABSOLUTE 0.0265 M/mm3 (0.0200-0.1100); RETICULOCYTE COUNT PERCENT 0.92 % (0.50-2.50)
[2022-10-06 06:36] LABS: Bun/Creatinine Ratio 20.2 (12.0-20.0); Calcium, Blood 8.6 mg/dL (8.5-10.1); Creatinine, Blood 1.73 mg/dL (0.40-1.00)
--- NOTE | 2022-10-06 18:24 | NUR ---
SHIFT SUMMARY PT IS PLEASANTLY CONFUSED. ONCE BECAME TEARFUL, WHEN SHE WAS UNABLE TO USE THE PHONE TO CALL HER . PT IS REDIRECTABLE. A&O TO SELF, FAMILY AND HOSPITAL SETTING ONLY. FORGETS WHY SHE IS HERE. PT'S DAUGHTER IN LAW, ROBERTO, WAS HERE TODAY. DTR IN LAW STATES THAT [facility] WANTS HER TO WEAR 2LPM OXYGEN VIA NC AT NIGHT DUE TO DIAGNOSIS OF SLEEP APNEA. FAMILY REPORTS THAT PT IS AWAITING INSURANCE AUTHORIZATION FOR A CPAP. BED ALARM FOR SAFETY DUE TO FALL RISK.
--- NOTE | 2022-10-07 05:49 | NUR ---
SHIFT SUMMARY PT RESTIONG IN THE CHIAR. SHE WAS UPSET AT THE START OF SHIFT CONFUSED AND THINKING THAT HER FAMILY ABANDONED HER HERE. SHES EAGER TO GO HOME. SHE IS EASILY DIRECTABLE AND COOPERATIVE WITH STAFF. PT TOOK A ASHOWER AND HER MOOD HAS IMPROVED. BED IN LOWEST POSITION AND CALL LIGHT IN REACH
[2022-10-07 05:55] LABS: Albumin, Blood 3.3 g/dL (3.4-5.0); Anion Gap 8 mmol/L (6-16); Blood Urea Nitrogen 29 mg/dL (8-24); Bun/Creatinine Ratio 19.3 (12.0-20.0); CO2, Blood 22 mmol/L (21-32); Calcium, Blood 9.3 mg/dL (8.5-10.1); Chloride, Blood 111 mmol/L (98-108); Glomerular Filtration Rate 34 (60-); Glucose, Blood 92 mg/dL (70-99); Phosphorus, Blood 2.9 mg/dL (2.5-4.9); Potassium, Blood 4.2 mmol/L (3.5-5.5); Sodium, Blood 141 mmol/L (136-145)
--- NOTE | 2022-10-07 18:45 | NUR ---
PT HAS DEVELOPED A NEW DRY COUGH TODAY. SHE IS ON ROOM AIR. IV ACCESS TO RIGHT AC. INDEPENDENT IN ROOM. VITAL SIGNS STABLE. ADDED FUROSEMIDE TO MAR DUE TO INCREASED LOWER ANKLE EDEMA. PT'S RIGHT FOOT IS RED WITH INCREASED LOCALIZED WARMTH, RN USED A SKIN MARKER TO OUTLINE THE AREA OF REDNESS. FREQUENT PHONE CALLS WITH FAMILY. PT HAS DEMENTIA AND IS CONCERNED THAT HER FAMILY WILL FORGET ABOUT HER.
--- NOTE | 2022-10-08 03:08 | NUR ---
PT UPDATE PT FREQUENTLY UP CAUGHT ATTEMPTING TO WANDER HALLS. PT UP THIS HOUR LOOKING FRO FRIDGE TO GET ICE CREAM. PT GIVEN SOME ICE CREAM BY THIS RN AFTER REDIRECTED BACK TO ROOM. PT HAS WANDERED UP TO NURSING DESK SEVERAL TIMES, WALKS W/O DIFFICULTY.
[2022-10-08 05:57] LABS: Hematocrit 30.2 % (33.0-51.0); Hemoglobin 9.5 g/dL (11.5-16.0); Mean Corpuscular HGB 29.7 pg (26.0-34.0); Mean Corpuscular HGB Conc 31.5 g/dL (31.5-36.5); Mean Corpuscular Volume 94 fL (80-100); Mean Platelet Volume 10.4 fL (9.1-12.4); Platelet Count 178 K/mm3 (150-400); RDW Coefficient Variation 16.4 % (11.7-14.2); RDW Standard Deviation 55.2 fL (35.1-46.3); White Blood Cell Count 6.52 K/mm3 (4.00-11.30)
[2022-10-08 06:17] LABS: Albumin, Blood 3.4 g/dL (3.4-5.0); Anion Gap 10 mmol/L (6-16); Blood Urea Nitrogen 28 mg/dL (8-24); Bun/Creatinine Ratio 20.3 (12.0-20.0); CO2, Blood 21 mmol/L (21-32); Calcium, Blood 8.9 mg/dL (8.5-10.1); Chloride, Blood 107 mmol/L (98-108); Creatinine, Blood 1.38 mg/dL (0.40-1.00); Glomerular Filtration Rate 38 (60-); Glucose, Blood 108 mg/dL (70-99); Phosphorus, Blood 3.1 mg/dL (2.5-4.9); Potassium, Blood 3.9 mmol/L (3.5-5.5); Sodium, Blood 138 mmol/L (136-145)
--- NOTE | 2022-10-08 07:48 | NUR ---
SHIFT SUMMARY PT AOX4 AT START OF SHIFT, FREQUENT SHORT TERM MEMORY LOSS REGARDING SITUATION AND WANTING TO LEAVE. PT BECAME INCREASINGLY CONFUSED THROUGHOUT NIGHT. WANDERED OUT OF ROOM FREQUENTLY, WALKED INDEPENDENTLY. WAS ESCORTED BACK TO HER ROOM MULTIPLE TIMES T/O SHIFT BY STAFF. PT FREQUENTLY CONFUSED REGARDING FAMILY MEMBERS WHO SHE THOUGHT WERE IN UNIT OR IN ROOM. LOOKING FOR THEM IN [place]. WANTING TO CALL FAMILY T/O NIGHT. PT ADAMANT SHE NEEDS TO LEAVE TO GO HOME. PT DRESSED AND READY TO GO THIS AM DESPITE THIS RN ASKING HER TO STAY IN BED AND KEEP HER FEET UP. CONCERN FOR PT'S RED BLE AND PALE TOES. PULSES PRESENT. ONCOMING RN UPDATED.
[2022-10-08] MEDS ORDERED: VISBIOME 112.51 EACH PO (11:20)
[2022-10-08] MEDS ORDERED: CEFD300 PO (11:20)
--- NOTE | 2022-10-08 13:40 | NUR ---
PATIENT D/C'D TO HOME. DC INSTRUCTIONS DISCUSSED WITH PATIENT AND DAUGHTER IN LAW. RX MEDICATIONS FAXED TO [facility]. PATIENT DENIES ANY FURTHER QUESTIONS OR CONCERNS.
== END 2022-10-08 13:42 | disposition home health service (06) | DRG 683 ==
LOC: ER 18:11 → MEDS 10-06 01:39
PROVIDERS: Emergency Medicine; Family Medicine; Internal Medicine; Student in an Organized Health Care Education/Training Program; ADMIT Hospitalist
DX: N17.9 Acute kidney failure, unspecified (principal); E87.1 Hypo-osmolality and hyponatremia; L03.115 Cellulitis of right lower limb; N39.0 Urinary tract infection, site not specified; N18.30 Chronic kidney disease, stage 3 unspecified; D63.1 Anemia in chronic kidney disease; I12.9 Hypertensive chronic kidney disease with stage 1 through stage 4 chronic kidney disease, or unspecified chronic kidney disease; M06.9 Rheumatoid arthritis, unspecified; B96.89 Other specified bacterial agents as the cause of diseases classified elsewhere; J45.909 Unspecified asthma, uncomplicated; G30.9 Alzheimer's disease, unspecified; F02.80 Dementia in other diseases classified elsewhere, unspecified severity, without behavioral disturbance, psychotic disturbance, mood disturbance, and anxiety; K21.9 Gastro-esophageal reflux disease without esophagitis; M19.90 Unspecified osteoarthritis, unspecified site; Z96.651 Presence of right artificial knee joint; N81.10 Cystocele, unspecified; Z98.890 Other specified postprocedural states; Z88.8 Allergy status to other drugs, medicaments and biological substances; Z88.1 Allergy status to other antibiotic agents; Z88.5 Allergy status to narcotic agent; Z79.899 Other long term (current) drug therapy; Z79.82 Long term (current) use of aspirin; Z79.891 Long term (current) use of opiate analgesic; Z79.52 Long term (current) use of systemic steroids; Z79.01 Long term (current) use of anticoagulants; Z98.49 Cataract extraction status, unspecified eye
CPT/HCPCS: 36415; 80048; 80053; 80069; 81001; 82728; 83540; 83550; 85025; 85027; 85045; 93005; 93010; 94640; 94664; 94760; 97110; 97161; 97165; 97530; 99284-25; A9270; J0696; J1650; J7030; J7512; J8610

== ENCOUNTER → 2022-10-25 | Outpatient (CLI) | payer OTHER ==
[~2022-10-25] MED LIST changes: +CEFD300 PO; +VISBIOME 112.51 EACH PO
[2022-10-27 13:33] LABS: Stool Occult Bld Immuno 1 Negative (NEGATIVE); Stool Occult Bld Immuno 2 Positive (NEGATIVE)
== END | disposition home or self-care (01) ==
LOC: LAB SHORT 13:00
PROVIDERS: Registered Nurse Oncology
DX: D64.9 Anemia, unspecified (principal)
CPT/HCPCS: 82274

== ENCOUNTER → 2022-11-23 | Outpatient (CLI) | payer OTHER | END | disposition home or self-care (01) | LOC: LAB SHORT 18:00 | DX: R30.0 Dysuria (principal) | CPT/HCPCS: 87077; 87086; 87186 ==

== ENCOUNTER → 2022-12-10 | Outpatient (CLI) | payer OTHER ==
[~2022-12-10] MED LIST changes: +Acetaminophen325 M1 PO; +CLARITIN5 MG PO; +DIFLUCAN100 MG PO; +FLUT1DIS2 INH; +FOLI1 PO; +PROBIOTIC1 EA13 PO; +Remicade100 MG IV; +SULFAMETHOXAZO1 EAC1 PO; +THERA-D2000 UNIT PO; +Voltaren100 GM TOP
== END | disposition home or self-care (01) ==
LOC: LAB 16:30 → LAB SHORT 16:30
DX: R30.0 Dysuria (principal)
CPT/HCPCS: 87077; 87086; 87186

== ENCOUNTER 2022-12-11 18:47 | Inpatient (IN) | payer OTHER ==
[~2022-12-11] VITALS: Ht 157.5 cm; Wt 75.3 kg
[~2022-12-11 18:47] MED LIST changes: -PROBIOTIC1 EA13 PO
[2022-12-11 19:39] LABS: BASOPHILS ABSOLUTE AUTO 0.03 K/mm3 (0.00-0.23); BASOPHILS PERCENT AUTO 1 % (0-2); EOSINOPHILS ABSOLUTE AUTO 0.06 K/mm3 (0.00-0.68); EOSINOPHILS PERCENT AUTO 2 % (0-6); Hematocrit 26.7 % (33.0-51.0); Hemoglobin 8.5 g/dL (11.5-16.0); IMMATURE GRAN ABSOLUTE AUTO 0.03 K/mm3 (0.00-0.10); IMMATURE GRAN PERCENT AUTO 1 % (0-1); LYMPHOCYTES ABSOLUTE AUTO 0.45 K/mm3 (0.84-5.20); LYMPHOCYTES PERCENT AUTO 11 % (21-46); MONOCYTES ABSOLUTE AUTO 0.23 K/mm3 (0.16-1.47); MONOCYTES PERCENT AUTO 6 % (4-13); Mean Corpuscular HGB 29.5 pg (26.0-34.0); Mean Corpuscular HGB Conc 31.8 g/dL (31.5-36.5); Mean Corpuscular Volume 93 fL (80-100); Mean Platelet Volume 11.1 fL (9.1-12.4); NEUTROPHILS ABSOLUTE AUTO 3.29 K/mm3 (1.96-9.15); NEUTROPHILS PERCENT AUTO 81 % (41-73); Platelet Count 169 K/mm3 (150-400); RDW Coefficient Variation 16.3 % (11.7-14.2); RDW Standard Deviation 54.8 fL (35.1-46.3); Red Blood Cell Count 2.88 M/mm3 (3.80-5.20); White Blood Cell Count 4.09 K/mm3 (4.00-11.30)
[2022-12-11 20:30] LABS: Albumin, Blood 2.8 g/dL (3.4-5.0); Albumin/Globulin Ratio 0.7 (0.8-1.8); Bilirubin, Total 0.4 mg/dL (0.1-1.0); Bun/Creatinine Ratio 14.8 (12.0-20.0); Calcium, Blood 8.6 mg/dL (8.5-10.1); Creatinine, Blood 2.36 mg/dL (0.40-1.00); Globulin, Blood 3.9 g/dL (2.2-4.0); Potassium, Blood 4.6 mmol/L (3.5-5.5); Total Protein, Blood 6.7 g/dL (6.4-8.2)
[2022-12-12 03:34] LABS: BASOPHILS ABSOLUTE AUTO 0.02 K/mm3 (0.00-0.23); BASOPHILS PERCENT AUTO 1 % (0-2); EOSINOPHILS ABSOLUTE AUTO 0.06 K/mm3 (0.00-0.68); EOSINOPHILS PERCENT AUTO 2 % (0-6); Hematocrit 24.8 % (33.0-51.0); Hemoglobin 7.9 g/dL (11.5-16.0); IMMATURE GRAN ABSOLUTE AUTO 0.04 K/mm3 (0.00-0.10); IMMATURE GRAN PERCENT AUTO 1 % (0-1); LYMPHOCYTES ABSOLUTE AUTO 0.65 K/mm3 (0.84-5.20); LYMPHOCYTES PERCENT AUTO 18 % (21-46); MONOCYTES ABSOLUTE AUTO 0.19 K/mm3 (0.16-1.47); MONOCYTES PERCENT AUTO 5 % (4-13); Mean Corpuscular HGB 28.8 pg (26.0-34.0); Mean Corpuscular HGB Conc 31.9 g/dL (31.5-36.5); Mean Corpuscular Volume 91 fL (80-100); Mean Platelet Volume 10.4 fL (9.1-12.4); NEUTROPHILS ABSOLUTE AUTO 2.75 K/mm3 (1.96-9.15); NEUTROPHILS PERCENT AUTO 74 % (41-73); Platelet Count 156 K/mm3 (150-400); RDW Coefficient Variation 16.3 % (11.7-14.2); RDW Standard Deviation 53.2 fL (35.1-46.3); Red Blood Cell Count 2.74 M/mm3 (3.80-5.20); White Blood Cell Count 3.71 K/mm3 (4.00-11.30)
[2022-12-12 03:53] LABS: Albumin, Blood 2.6 g/dL (3.4-5.0); Albumin/Globulin Ratio 0.7 (0.8-1.8); Bilirubin, Total 0.3 mg/dL (0.1-1.0); Bun/Creatinine Ratio 15.2 (12.0-20.0); Creatinine, Blood 2.17 mg/dL (0.40-1.00); Globulin, Blood 3.5 g/dL (2.2-4.0); Potassium, Blood 4.5 mmol/L (3.5-5.5); Total Protein, Blood 6.1 g/dL (6.4-8.2)
--- NOTE | 2022-12-12 04:00 | NUR ---
ASSUMED CARE OF PT AT 0310 FROM ER PT AWAKE AND ORIENTED X4. PT DAUGHTER IN WAIT AREA. BP 115/74 HR 90'S LUNG SOUNDS CLEAR BILATERALLY THROUGHOUT. SPO2 96% NO APPARENT SKIN ISSUES EXCEPT SMALL BRUISING THROUGHOUT. PT UNSURE OF LAST BM. CONTINENT OF BOWEL AND BLADDER.
--- NOTE | 2022-12-12 06:39 | NUR ---
END OF SHIFT SUMMARY PT A/O X3-4. PT HAS BOUTS OF WAKING UP FROM SLEEP AND BEING CONFUSED. AFTER REORIENTING PT SHE KNOWS WHERE SHE IS OTHER TIMES SHE DOES NOT. REPORT FROM DAUGHTER PT DIAGNOSED WITH ALZHEIMERS. CARDIAC- SBP'S 100'S WITH HR IN 80'S. NO LEVOPHED STARTED ON PT AT ALL AT THIS POINT. RESP- NON-PRODUCTIVE COUGH. CLEAR BILATERALLY THROUGHOUT WITH DIMINISHED BASES. SPO2 >92% ON RA. GI,- PT IS CONTINENT OF BOWEL AND BLADDER. WEARS A PANTILINER AT BASELINE AT HOME. WILL CONTINUE TO MONITOR UNTIL REPORT GIVEN TO MAL ALMONTE.
--- NOTE | 2022-12-12 07:48 | NUR ---
Assumed care for pt at 0700. She is currently A&Ox2, w/ a hx. of Alzheimer's, though her mentation reportedly waxes and wanes, especially at night per family. She is receivng NS gtt @ 150 ml/hr and did not require any other medications to support her BP overnight. Require UA sample. US at bedside performing renal US and Chest X-Ray has been ordered as well.
--- NOTE | 2022-12-12 07:58 | NUR ---
During renal US pt voided out 200 ml. Post void residual was 140 ml.
--- NOTE | 2022-12-12 17:53 | NUR ---
Pt's [id number] has brought her Advanced Directive to the ICU to be copied and added to her chart. It includes directions advising she "would like life support and tube feeding for two days. After two days, my healthcare artist representative may decide on further treatment."
--- NOTE | 2022-12-12 18:06 | NUR ---
Pt worked w/ PT, OT and Speech today. Ambulated around the room w/ a walker w/ standby assist, though pt does remain impulsive, not using her call jackson prior to leaving bed or chair. Pt on 2 lpm o2 via NC after HUSSEIN when ambulating to bedside commode this morning. ABX changed to Rocephin IV which pt tolerated. Continuing to receiving NS gtt @ 150 ml/hr. BP has been difficult to obtain w/ bedside monitor, has required manual BP a handful of times.
--- NOTE | 2022-12-12 19:13 | NUR ---
ASSUMED CARE. PT AOX1, CONFUSED ABOUT PLACE AND TIME. COOPERATIVE. BED ALARM IS ON. CALL LIGHT IS IN REACH. IVF INFUSING AT 150. DENIES ANY PAIN. O2 IN PLACE AND SATS AT 100%. VS WITH BP SLIGHTLY ELEVATED PATIENT DOES NOT STAY STILL FOR CUFF TO READ RIGHT, CUFF IS ON RIGHT LOWER EXTREMITY. WILL RECHECK.
--- NOTE | 2022-12-12 23:26 | NUR ---
PT VERY CONFUSED THINKING SHE IS AT A FAMILY MEMBERS HOUSE. ATTEMPTED TO REORIENT HER BUT SHE STARTED TO GET UPSET AND INSISTING ON LEAVING. CALLED COLIN WHO IS HER FAMILY AND SHE WAS ABLE TO HELP CALM HER AND INFORM HER THAT SHE WAS IN THE HOSPITAL. SHOWED HER MY BADGE AND OPENED UP HER ROOM TO LOOK OUT INTO ICU. THIS HELPED CALM HER. C/O PAIN IN THE RIGHT SIDE, GAVE OXYCODONE. BED ALARM BACK ON.
[2022-12-13 03:15] LABS: Hematocrit 23.4 % (33.0-51.0); Hemoglobin 7.6 g/dL (11.5-16.0); Mean Corpuscular HGB Conc 32.5 g/dL (31.5-36.5); Mean Corpuscular Volume 93 fL (80-100); Mean Platelet Volume 10.2 fL (9.1-12.4); Platelet Count 150 K/mm3 (150-400); RDW Coefficient Variation 16.3 % (11.7-14.2); RDW Standard Deviation 54.9 fL (35.1-46.3); Red Blood Cell Count 2.53 M/mm3 (3.80-5.20); White Blood Cell Count 3.45 K/mm3 (4.00-11.30)
[2022-12-13 03:50] LABS: BASOPHILS PERCENT MAN 3 % (0-2); EOSINOPHILS PERCENT MAN 3 % (0-6); LYMPHOCYTES ABSOLUTE MAN 0.75 K/mm3 (0.84-5.20); LYMPHOCYTES PERCENT MAN 22 % (21-46); MONOCYTES PERCENT MAN 0 % (4-13); NEUTROPHILS ABSOLUTE MAN 2.48 K/mm3 (1.96-9.15); SEG NEUTROPHILS PERCENT MAN 72 % (41-73); TOTAL CELLS COUNTED 100
[2022-12-13 03:54] LABS: Albumin, Blood 2.5 g/dL (3.4-5.0); Anion Gap 6 mmol/L (6-16); Blood Urea Nitrogen 29 mg/dL (8-24); Bun/Creatinine Ratio 14.1 (12.0-20.0); CO2, Blood 19 mmol/L (21-32); Calcium, Blood 8.1 mg/dL (8.5-10.1); Chloride, Blood 114 mmol/L (98-108); Creatinine, Blood 2.06 mg/dL (0.40-1.00); Glomerular Filtration Rate 23 (60-); Glucose, Blood 97 mg/dL (70-99); Phosphorus, Blood 3.2 mg/dL (2.5-4.9); Potassium, Blood 4.3 mmol/L (3.5-5.5); Sodium, Blood 139 mmol/L (136-145)
--- NOTE | 2022-12-13 05:47 | NUR ---
SHIFT SUMMARY: PT REMAINS CONFUSED T/O THE NIGHT WITH MINIMAL SLEEP DISPITE COMFORTING EFFORTS. SHE HAD AUDITORY AND VISUAL HULLUCINATION OF HER FAMILY BEING HERE WHICH HAS CARLA HER INCREASING RESTLESS. DISPITE FAMILY WAS CONTACTED TO HELP HER UNDERSTAND IMPORTANCE OF HOSPITAL STAY, SHE HAS BEEN VERY PERSISTANT SHE WANTS TO GO HOME. IMPULSIVE AT TIMES BUT REMAINED WITH ON BED ALARM. C/O PAIN TO RIGHT SIDE, WAS GIVEN OXYCODONE AND HEATING PAD WHICH HELPED. SBP HAS REMAINED STABLE WITH MAPS > 70. O2 HAS REMAINED ON 2L WITH SATS >95%. MINIMAL URINE OUTPUT AT TIMES DISPITE LITER BOLUS OF FLUIDS. CREATINE IMPROVED SLIGHTLY FROM 2.17 TO 2.06. WILL REPORT OFF.
--- NOTE | 2022-12-13 07:15 | NUR ---
Assumed care for pt at 0700. She did not sleep well per machinist 2nd shift w/ worsening confusion throughout the night. Pt remains on 2 lpm o2 via NC, NS gtt completed overnight and pt remained normotensive.
--- NOTE | 2022-12-13 07:53 | NUR ---
RN performed a bladder scan on pt prior to voiding w/ results of 195 ml in her bladder. She urinated out 175 ml. Post-void residual w/ bladder scanner was 70 ml.
--- NOTE | 2022-12-13 10:11 | NUR ---
Dr. Iqbal at bedside, she advised to give a dose of Roxicodone from pt MAR for right-sided CP.
--- NOTE | 2022-12-13 15:26 | NUR ---
RN accompanied pt to imaging for a 2 view chest XRay. Pt went via WC on 2 lpm o2 via NC and remianed on X3 throughout. Pt returned to room uneventfully and placed back into bed.
--- NOTE | 2022-12-13 16:01 | NUR ---
Pt moved from ICU 8 to ICU 14. PT at bedside working w/ pt in ICU 14.
--- NOTE | 2022-12-13 18:18 | NUR ---
Called report to Ariella ALMONTE for room 336.
--- NOTE | 2022-12-13 21:28 | NUR ---
PATIENT ARRIVED FROM ICU ALERT BUT FORGETFUL AND IMPULSIVE, BED ALARM ON, NO TELE, 2LNC AT BEDTIME ONLY, VOIDS BEDSIDE W/ 1 ASSIST, BRUISING TO RFA, 20 RFA SL, CPAPA AT BEDSIDE, APPLIED WARMER FOR PAIN AND GAVE TYLENOL, NO BP'S ON ARMS BECAUSE PATIENT DOES NOT TOLERATE, OK PER MD TO TAKE ON CALF.
[2022-12-13] MEDS ORDERED: ASPI81CH PO (23:04)
[2022-12-13] MEDS ORDERED: PROBIOTIC1 EA13 PO (23:08)
[2022-12-13] MEDS ORDERED: PRAMIPEXOLE D0.25 M1 PO (23:09)
--- NOTE | 2022-12-14 05:24 | NUR ---
PATIENT RESTLESS ALL NIGHT AND PULLING OFF OXYGEN. MEDICATED FOR PAIN PER EMAR
[2022-12-14 09:00] LABS: BASOPHILS ABSOLUTE AUTO 0.06 K/mm3 (0.00-0.23); BASOPHILS PERCENT AUTO 2 % (0-2); EOSINOPHILS ABSOLUTE AUTO 0.19 K/mm3 (0.00-0.68); EOSINOPHILS PERCENT AUTO 5 % (0-6); Hematocrit 24.4 % (33.0-51.0); Hemoglobin 7.8 g/dL (11.5-16.0); IMMATURE GRAN ABSOLUTE AUTO 0.04 K/mm3 (0.00-0.10); IMMATURE GRAN PERCENT AUTO 1 % (0-1); LYMPHOCYTES ABSOLUTE AUTO 0.73 K/mm3 (0.84-5.20); LYMPHOCYTES PERCENT AUTO 18 % (21-46); MONOCYTES ABSOLUTE AUTO 0.16 K/mm3 (0.16-1.47); MONOCYTES PERCENT AUTO 4 % (4-13); Mean Corpuscular HGB 29.1 pg (26.0-34.0); Mean Corpuscular Volume 91 fL (80-100); Mean Platelet Volume 10.7 fL (9.1-12.4); NEUTROPHILS ABSOLUTE AUTO 2.81 K/mm3 (1.96-9.15); NEUTROPHILS PERCENT AUTO 70 % (41-73); Platelet Count 162 K/mm3 (150-400); RDW Coefficient Variation 16.1 % (11.7-14.2); RDW Standard Deviation 52.9 fL (35.1-46.3); Red Blood Cell Count 2.68 M/mm3 (3.80-5.20); White Blood Cell Count 3.99 K/mm3 (4.00-11.30)
[2022-12-14 09:18] LABS: Albumin, Blood 2.6 g/dL (3.4-5.0); Anion Gap 6 mmol/L (6-16); Blood Urea Nitrogen 25 mg/dL (8-24); Bun/Creatinine Ratio 15.5 (12.0-20.0); CO2, Blood 20 mmol/L (21-32); Calcium, Blood 8.5 mg/dL (8.5-10.1); Chloride, Blood 114 mmol/L (98-108); Creatinine, Blood 1.61 mg/dL (0.40-1.00); Glomerular Filtration Rate 31 (60-); Glucose, Blood 91 mg/dL (70-99); Phosphorus, Blood 2.7 mg/dL (2.5-4.9); Potassium, Blood 4.4 mmol/L (3.5-5.5); Sodium, Blood 140 mmol/L (136-145)
[2022-12-14] MEDS ORDERED: CEFD300 PO (13:14)
[2022-12-14] MEDS ORDERED: ONDA4ODT MM (13:14)
--- NOTE | 2022-12-14 14:23 | NUR ---
DISCHARGE SUMARY: PT AND FAMILY EDUCATED ON DISCHARGE MEDICATIONS, FOLLOWING UP WITH PCP ON 12/20/22 AT 1430. PT IV REMOVED BY TOLL TICKET CLERK W/O DIFFICULTY AND CATHETER TIP INTACTED. PT DRESSED BY FAMILY AND PERSONAL BELONGINGS P[ACK BY FAMILY. PT ESCORTED BY DEVIN CRISOSTOMO TO 2ND FLOOR LOBBY TO BE TRANSPORTED HOE BY FAMILY.
== END 2022-12-14 13:00 | disposition home health service (06) | DRG 683 ==
LOC: ER 18:47 → ICUW 12-12 02:57 → ICUE 12-12 02:57 → ICUW 12-13 16:19 → MEDS 12-13 19:07
PROVIDERS: Emergency Medicine; Family Medicine; Internal Medicine; ADMIT Internal Medicine
DX: N17.9 Acute kidney failure, unspecified (principal); E46 Unspecified protein-calorie malnutrition; E87.21 Acute metabolic acidosis; F05 Delirium due to known physiological condition; N39.0 Urinary tract infection, site not specified; N18.30 Chronic kidney disease, stage 3 unspecified; E86.0 Dehydration; E86.1 Hypovolemia; N39.43 Post-void dribbling; J45.909 Unspecified asthma, uncomplicated; G30.9 Alzheimer's disease, unspecified; F02.80 Dementia in other diseases classified elsewhere, unspecified severity, without behavioral disturbance, psychotic disturbance, mood disturbance, and anxiety; M06.9 Rheumatoid arthritis, unspecified; K21.9 Gastro-esophageal reflux disease without esophagitis; I12.9 Hypertensive chronic kidney disease with stage 1 through stage 4 chronic kidney disease, or unspecified chronic kidney disease; I95.9 Hypotension, unspecified; N81.10 Cystocele, unspecified; M19.90 Unspecified osteoarthritis, unspecified site; R56.9 Unspecified convulsions; R33.8 Other retention of urine; R63.4 Abnormal weight loss; G89.29 Other chronic pain; R07.81 Pleurodynia; M54.9 Dorsalgia, unspecified; Z96.651 Presence of right artificial knee joint; Z68.30 Body mass index [BMI] 30.0-30.9, adult; Z92.25 Personal history of immunosuppression therapy; Z88.8 Allergy status to other drugs, medicaments and biological substances; Z88.1 Allergy status to other antibiotic agents; Z88.5 Allergy status to narcotic agent; Z79.899 Other long term (current) drug therapy; Z79.52 Long term (current) use of systemic steroids; Z79.51 Long term (current) use of inhaled steroids; Z79.891 Long term (current) use of opiate analgesic; Z79.01 Long term (current) use of anticoagulants; Z79.2 Long term (current) use of antibiotics; Z98.890 Other specified postprocedural states; Z98.49 Cataract extraction status, unspecified eye
CPT/HCPCS: 36415; 71045; 71046; 76770; 80053; 80069; 83605; 84145; 84484; 85025; 87040; 92610; 93005; 93010; 94640; 94664; 94760; 97116; 97162; 97165; 97530; 99285-25; A9270; J0696; J1650; J2185; J7030; J7060

== ENCOUNTER → 2023-01-06 | Outpatient (CLI) | payer OTHER ==
[~2023-01-06] MED LIST changes: +ELIQUIS2.5 MG PO; +FURO20; +LEVE500 PO; +PROBIOTIC1 EA13 PO
== END | disposition home or self-care (01) ==
LOC: LAB 13:19 → LAB SHORT 13:19
DX: N39.0 Urinary tract infection, site not specified (principal)
CPT/HCPCS: 87077; 87086; 87186

== ENCOUNTER 2023-01-16 11:34 | Observation (INO) | payer OTHER ==
[~2023-01-16] VITALS: Ht 157.5 cm; Wt 71.2 kg
[~2023-01-16 11:34] MED LIST changes: -ELIQUIS2.5 MG PO; -FURO20; -LEVE500 PO; -METHOTREXATE2.5 M1 PO
[2023-01-16 12:37] LABS: BASOPHILS ABSOLUTE AUTO 0.03 K/mm3 (0.00-0.23); BASOPHILS PERCENT AUTO 0 % (0-2); EOSINOPHILS ABSOLUTE AUTO 0.12 K/mm3 (0.00-0.68); EOSINOPHILS PERCENT AUTO 1 % (0-6); Hematocrit 31.3 % (33.0-51.0); Hemoglobin 9.9 g/dL (11.5-16.0); IMMATURE GRAN ABSOLUTE AUTO 0.05 K/mm3 (0.00-0.10); IMMATURE GRAN PERCENT AUTO 1 % (0-1); LYMPHOCYTES ABSOLUTE AUTO 0.79 K/mm3 (0.84-5.20); LYMPHOCYTES PERCENT AUTO 9 % (21-46); MONOCYTES ABSOLUTE AUTO 0.17 K/mm3 (0.16-1.47); MONOCYTES PERCENT AUTO 2 % (4-13); Mean Corpuscular HGB 28.8 pg (26.0-34.0); Mean Corpuscular HGB Conc 31.6 g/dL (31.5-36.5); Mean Corpuscular Volume 91 fL (80-100); NEUTROPHILS ABSOLUTE AUTO 7.28 K/mm3 (1.96-9.15); NEUTROPHILS PERCENT AUTO 86 % (41-73); Platelet Count 197 K/mm3 (150-400); RDW Coefficient Variation 16.1 % (11.7-14.2); RDW Standard Deviation 53.4 fL (35.1-46.3); Red Blood Cell Count 3.44 M/mm3 (3.80-5.20); White Blood Cell Count 8.44 K/mm3 (4.00-11.30)
[2023-01-16 12:57] LABS: Albumin, Blood 3.3 g/dL (3.4-5.0); Albumin/Globulin Ratio 0.8 (0.8-1.8); Bilirubin, Total 0.5 mg/dL (0.1-1.0); Bun/Creatinine Ratio 20.3 (12.0-20.0); Calcium, Blood 9.5 mg/dL (8.5-10.1); Creatinine, Blood 1.43 mg/dL (0.40-1.00); Globulin, Blood 4.4 g/dL (2.2-4.0); Potassium, Blood 4.4 mmol/L (3.5-5.5); Total Protein, Blood 7.7 g/dL (6.4-8.2)
[2023-01-16 14:52] LABS: Source, Urine Clean Catch
[2023-01-16 14:56] LABS: Appearance, Urine Clear (Clear); Bilirubin, Urine Neg (Neg); Blood, Urine 2+ (Neg); Color, Urine Yellow (P-Yellow); Glucose Qualitative, Urine Neg (Neg); Ketones, Urine Neg (Neg); Leukocyte Esterase, Urine 2+ (Neg); Nitrite, Urine Neg (Neg); Protein, Urine Neg (Neg); Urobilinogen, Urine NORM (Normal)
[2023-01-16 15:12] LABS: Bacteria Few /hpf; Squamous Epithelial Cells Few /hpf (Few)
[2023-01-16] MEDS ORDERED: DOXA4 PO (17:23)
[2023-01-16] MEDS ORDERED: ELIQUIS5 M2 PO ×2 (17:25→18:15)
[2023-01-16] MEDS ORDERED: FAMO20 PO (17:26)
[2023-01-16] MEDS ORDERED: LEVE500 PO (17:26)
[2023-01-16] MEDS ORDERED: ONDA4ODT MM (17:27)
[2023-01-16] MEDS ORDERED: OXYC5 PO (17:28)
[2023-01-16] MEDS ORDERED: METHOTREXATE2.5 M1 PO (17:30)
[2023-01-16] MEDS ORDERED: PRED5 PO (17:30)
[2023-01-16] MEDS ORDERED: MONT10T PO (17:32)
[2023-01-16] MEDS ORDERED: Diflucan100 MG PO (17:32)
[2023-01-16] MEDS ORDERED: PRAMIPEXOLE D0.25 M1 PO (17:33)
[2023-01-16] MEDS ORDERED: VALSARTAN160 MG PO (17:35)
[2023-01-16] MEDS ORDERED: FURO20 PO (17:35)
[2023-01-16] MEDS ORDERED: FLUT1DIS2 INH (18:10)
[2023-01-16] MEDS ORDERED: THERA-D2000 UNIT PO (18:11)
[2023-01-16] MEDS ORDERED: POTA10T PO (18:12)
[2023-01-16] MEDS ORDERED: FOLI1 PO (18:14)
--- NOTE | 2023-01-16 18:42 | NUR ---
PT ARRIVED TO THE UNIT VIA GURNEY. ORIENTED TO THE ROOM. PROVIDED THICKENED LIQUIDS. PROVIDED WARM BLANKETS. DAUGHTER IN LAW IS AT BEDSIDE. 2 RN SKIN ASSESMENT PREFORMED WITH JENNI ALMONTE. BED IS IN THE LOW POSTION AND CALL LIGHT IS WITIN REACH
--- NOTE | 2023-01-17 02:44 | NUR ---
PATIENT TRANSFER RN TO RN. REPORT TAKEN FROM QAMAR ALMONTE.
--- NOTE | 2023-01-17 04:45 | NUR ---
SHIFT SUMMARY PATIENT HAD NO ACUTE CHANGES DONE. AXOX TO SELF AND PLACE. IMPULSIVE. ONE ASSIST TO BSC. PIV REMAINS INTACT. TELE MONITOR NSR @ 70'S. ON 2L O2 NC AT NIGHT. VSS/AFEBRILE. DENIES CHEST PAIN, SOB, AND N/V. CALL LIGHT IN REACH. BED IN LOWEST POSITION AND ALARM ACTIVATED. WILL CONTINUE TO MONITOR UNTIL DAY SHIFT NURSE ASSUMES CARE.
--- NOTE | 2023-01-17 14:59 | NUR ---
DISCHARGE HOME PT DISCHARGED HOME VIA W/C TO POV. DISCHARGE INSTRUCTIONS GIVEN TO CAREGIVER. PERSCRIPTIONS FAXED TO [facility] IN [place]. CONTINUE POC.
== END 2023-01-17 14:38 | disposition home health service (06) ==
LOC: ER 11:34 → MEDS 14:49
PROVIDERS: Student in an Organized Health Care Education/Training Program; ADMIT Internal Medicine
DX: I26.99 Other pulmonary embolism without acute cor pulmonale (principal); R07.9 Chest pain, unspecified; M06.9 Rheumatoid arthritis, unspecified; N18.30 Chronic kidney disease, stage 3 unspecified; G40.909 Epilepsy, unspecified, not intractable, without status epilepticus; F03.90 Unspecified dementia, unspecified severity, without behavioral disturbance, psychotic disturbance, mood disturbance, and anxiety; I50.32 Chronic diastolic (congestive) heart failure; I13.0 Hypertensive heart and chronic kidney disease with heart failure and stage 1 through stage 4 chronic kidney disease, or unspecified chronic kidney disease; Z79.82 Long term (current) use of aspirin; Z79.899 Other long term (current) drug therapy; Z88.0 Allergy status to penicillin; Z88.8 Allergy status to other drugs, medicaments and biological substances
CPT/HCPCS: 36415; 71046; 71260; 80053; 81001; 84484; 85025; 87086; 92610; 93005; 93010; 93308; 93321; 94640; 94664; 94760; 96361; 96372; 99285-25; A9270; G0378; J1650; J7040; J7512; Q9967

== ENCOUNTER 2023-03-05 10:10 | Emergency (ER) | payer OTHER ==
[~2023-03-05] VITALS: Ht 157.5 cm; Wt 72.1 kg
[~2023-03-05 10:10] MED LIST changes: +Diflucan100 MG PO; +ELIQUIS5 M2 PO; +LEVE500 PO; +METHOTREXATE2.5 M1 PO
[2023-03-05 11:03] LABS: BASOPHILS ABSOLUTE AUTO 0.02 K/mm3 (0.00-0.23); BASOPHILS PERCENT AUTO 0 % (0-2); EOSINOPHILS ABSOLUTE AUTO 0.05 K/mm3 (0.00-0.68); EOSINOPHILS PERCENT AUTO 1 % (0-6); Hematocrit 29.7 % (33.0-51.0); Hemoglobin 9.8 g/dL (11.5-16.0); IMMATURE GRAN ABSOLUTE AUTO 0.02 K/mm3 (0.00-0.10); IMMATURE GRAN PERCENT AUTO 0 % (0-1); LYMPHOCYTES ABSOLUTE AUTO 0.63 K/mm3 (0.84-5.20); LYMPHOCYTES PERCENT AUTO 10 % (21-46); MONOCYTES ABSOLUTE AUTO 0.29 K/mm3 (0.16-1.47); MONOCYTES PERCENT AUTO 5 % (4-13); Mean Corpuscular HGB 30.2 pg (26.0-34.0); Mean Corpuscular Volume 91 fL (80-100); Mean Platelet Volume 10.1 fL (9.1-12.4); NEUTROPHILS ABSOLUTE AUTO 5.24 K/mm3 (1.96-9.15); NEUTROPHILS PERCENT AUTO 84 % (41-73); Platelet Count 181 K/mm3 (150-400); RDW Coefficient Variation 16.5 % (11.7-14.2); RDW Standard Deviation 54.4 fL (35.1-46.3); Red Blood Cell Count 3.25 M/mm3 (3.80-5.20); White Blood Cell Count 6.25 K/mm3 (4.00-11.30)
[2023-03-05 11:25] LABS: Albumin, Blood 3.3 g/dL (3.4-5.0); Albumin/Globulin Ratio 0.8 (0.8-1.8); Bilirubin, Total 0.3 mg/dL (0.1-1.0); Bun/Creatinine Ratio 14.6 (12.0-20.0); Calcium, Blood 8.8 mg/dL (8.5-10.1); Creatinine, Blood 0.96 mg/dL (0.40-1.00); Globulin, Blood 3.9 g/dL (2.2-4.0); Total Protein, Blood 7.2 g/dL (6.4-8.2)
[2023-03-05 11:53] LABS: International Normalized Ratio 1.02; Prothrombin Time Results 10.7 Sec (9.7-11.5)
== END 2023-03-05 12:33 | disposition home or self-care (01) ==
LOC: ER 10:10
PROVIDERS: Physician Assistant
DX: N95.0 Postmenopausal bleeding (principal); T45.515A Adverse effect of anticoagulants, initial encounter; Z88.8 Allergy status to other drugs, medicaments and biological substances; Z88.1 Allergy status to other antibiotic agents; Z88.5 Allergy status to narcotic agent; Z79.899 Other long term (current) drug therapy; Z79.52 Long term (current) use of systemic steroids; I10 Essential (primary) hypertension; J45.909 Unspecified asthma, uncomplicated; J44.9 Chronic obstructive pulmonary disease, unspecified; Z87.891 Personal history of nicotine dependence
CPT/HCPCS: 36415; 80053; 82272; 85025; 85610; 86850; 86900; 86901; 93005; 93010; 99284-25

== ENCOUNTER → 2023-03-28 | Outpatient (CLI) | payer OTHER ==
[2023-04-04 10:08] LABS: HPV 16 Negative (Negative); HPV 18 Negative (Negative); HPV OTHER HR TYPES Negative (Negative)
== END ==
LOC: LAB 12:00 → LAB SHORT 12:00
PROVIDERS: Family Medicine
DX: Z01.419 Encounter for gynecological examination (general) (routine) without abnormal findings (principal)
CPT/HCPCS: 87624; 88175

== ENCOUNTER → 2023-06-02 | Outpatient (CLI) | payer OTHER ==
[~2023-06-02] MED LIST changes: +ALBU2.5V5
== END ==
LOC: LAB 09:44 → LAB SHORT 09:44
DX: R31.9 Hematuria, unspecified (principal)
CPT/HCPCS: 87086

== ENCOUNTER → 2023-06-28 | Outpatient (CLI) | payer OTHER | END | disposition home or self-care (01) | LOC: LAB 15:55 → LAB SHORT 15:55 | DX: R30.0 Dysuria (principal) | CPT/HCPCS: 87086 ==

== ENCOUNTER 2023-07-21 10:37 | Emergency (ER) | payer OTHER ==
[~2023-07-21] VITALS: Ht 152.4 cm; Wt 72.6 kg
[2023-07-21 11:37] LABS: BASOPHILS ABSOLUTE AUTO 0.06 K/mm3 (0.00-0.23); BASOPHILS PERCENT AUTO 1 % (0-2); EOSINOPHILS PERCENT AUTO 2 % (0-6); Hematocrit 34.1 % (33.0-51.0); Hemoglobin 11.1 g/dL (11.5-16.0); IMMATURE GRAN ABSOLUTE AUTO 0.03 K/mm3 (0.00-0.10); IMMATURE GRAN PERCENT AUTO 0 % (0-1); LYMPHOCYTES ABSOLUTE AUTO 1.44 K/mm3 (0.84-5.20); LYMPHOCYTES PERCENT AUTO 22 % (21-46); MONOCYTES PERCENT AUTO 11 % (4-13); Mean Corpuscular HGB 30.1 pg (26.0-34.0); Mean Corpuscular HGB Conc 32.6 g/dL (31.5-36.5); Mean Corpuscular Volume 92 fL (80-100); Mean Platelet Volume 10.5 fL (9.1-12.4); NEUTROPHILS ABSOLUTE AUTO 4.36 K/mm3 (1.96-9.15); NEUTROPHILS PERCENT AUTO 65 % (41-73); Platelet Count 159 K/mm3 (150-400); RDW Coefficient Variation 14.5 % (11.7-14.2); RDW Standard Deviation 48.5 fL (35.1-46.3); Red Blood Cell Count 3.69 M/mm3 (3.80-5.20); White Blood Cell Count 6.69 K/mm3 (4.00-11.30)
[2023-07-21 11:55] LABS: Albumin, Blood 3.2 g/dL (3.4-5.0); Bilirubin, Total 0.2 mg/dL (0.1-1.0); Bun/Creatinine Ratio 17.5 (12.0-20.0); Calcium, Blood 8.7 mg/dL (8.5-10.1); Creatinine, Blood 0.97 mg/dL (0.40-1.00); Globulin, Blood 3.2 g/dL (2.2-4.0); Potassium, Blood 3.9 mmol/L (3.5-5.5); Total Protein, Blood 6.4 g/dL (6.4-8.2)
[2023-07-21 14:53] LABS: Source, Urine Straight Cath
[2023-07-21 15:11] LABS: Appearance, Urine Clear (Clear); Bilirubin, Urine Neg (Neg); Blood, Urine 4+ (Neg); Color, Urine Yellow (P-Yellow); Glucose Qualitative, Urine Neg (Neg); Ketones, Urine Neg (Neg); Leukocyte Esterase, Urine Neg (Neg); Nitrite, Urine Neg (Neg); Protein, Urine Neg (Neg); Urobilinogen, Urine NORM (Normal); pH, Urine 6.5 (5.0-8.0)
[2023-07-21 15:19] LABS: Bacteria Few /hpf; Squamous Epithelial Cells Few /hpf (Few); White Blood Cells, Urine 0-2 /hpf (0-5)
[2023-07-21 17:10] VITALS: BP 134/88
== END 2023-07-21 15:51 | disposition home or self-care (01) ==
LOC: ER 10:37
PROVIDERS: Emergency Medicine
DX: F03.90 Unspecified dementia, unspecified severity, without behavioral disturbance, psychotic disturbance, mood disturbance, and anxiety (principal); J44.9 Chronic obstructive pulmonary disease, unspecified; Z87.891 Personal history of nicotine dependence; Z79.01 Long term (current) use of anticoagulants; Z79.899 Other long term (current) drug therapy; Z88.5 Allergy status to narcotic agent; Z88.1 Allergy status to other antibiotic agents; Z88.8 Allergy status to other drugs, medicaments and biological substances
CPT/HCPCS: 80053; 81001; 85025; 99284-25

== ENCOUNTER 2023-11-07 11:52 | Emergency (ER) | payer OTHER ==
[~2023-11-07] VITALS: Ht 157.5 cm; Wt 76.2 kg
[2023-11-07] MEDS ORDERED: ESCI10 PO (12:58)
[2023-11-07] MEDS ORDERED: OMEP20ER PO (12:58)
[2023-11-07] MEDS ORDERED: MONT5TCH PO (12:59)
[2023-11-07] MEDS ORDERED: PRAM.5 PO (13:00)
[2023-11-07 13:06] LABS: BASOPHILS ABSOLUTE AUTO 0.06 K/mm3 (0.00-0.23); BASOPHILS PERCENT AUTO 1 % (0-2); EOSINOPHILS ABSOLUTE AUTO 0.09 K/mm3 (0.00-0.68); EOSINOPHILS PERCENT AUTO 1 % (0-6); Hematocrit 39.2 % (33.0-51.0); Hemoglobin 13.3 g/dL (11.5-16.0); IMMATURE GRAN ABSOLUTE AUTO 0.04 K/mm3 (0.00-0.10); IMMATURE GRAN PERCENT AUTO 1 % (0-1); LYMPHOCYTES ABSOLUTE AUTO 1.48 K/mm3 (0.84-5.20); LYMPHOCYTES PERCENT AUTO 20 % (21-46); MONOCYTES PERCENT AUTO 10 % (4-13); Mean Corpuscular HGB 31.4 pg (26.0-34.0); Mean Corpuscular HGB Conc 33.9 g/dL (31.5-36.5); Mean Corpuscular Volume 93 fL (80-100); Mean Platelet Volume 11.1 fL (9.1-12.4); NEUTROPHILS ABSOLUTE AUTO 4.97 K/mm3 (1.96-9.15); NEUTROPHILS PERCENT AUTO 68 % (41-73); Platelet Count 213 K/mm3 (150-400); RDW Coefficient Variation 13.9 % (11.7-14.2); RDW Standard Deviation 46.5 fL (35.1-46.3); Red Blood Cell Count 4.24 M/mm3 (3.80-5.20); White Blood Cell Count 7.34 K/mm3 (4.00-11.30)
[2023-11-07 13:24] LABS: Source, Urine Clean Catch
[2023-11-07 13:40] LABS: Appearance, Urine Hazy (Clear); Bilirubin, Urine Neg (Neg); Blood, Urine 4+ (Neg); Color, Urine Yellow (P-Yellow); Glucose Qualitative, Urine Neg (Neg); Ketones, Urine Neg (Neg); Leukocyte Esterase, Urine Neg (Neg); Nitrite, Urine Neg (Neg); Protein, Urine 1+ (Neg); Specific Gravity, Urine 1.015 (1.003-1.022); Urobilinogen, Urine NORM (Normal)
[2023-11-07 13:41] LABS: Albumin, Blood 3.6 g/dL (3.4-5.0); Bilirubin, Total 0.6 mg/dL (0.1-1.0); Bun/Creatinine Ratio 20.3 (12.0-20.0); Calcium, Blood 8.6 mg/dL (8.5-10.1); Creatinine, Blood 1.23 mg/dL (0.40-1.00); Globulin, Blood 3.6 g/dL (2.2-4.0); Magnesium, Blood 2.1 mg/dL (1.6-2.4); Potassium, Blood 3.6 mmol/L (3.5-5.5); Total Protein, Blood 7.2 g/dL (6.4-8.2)
[2023-11-07 13:59] LABS: Amorphous Light (0-Heavy); Bacteria Rare /hpf; Squamous Epithelial Cells Few /hpf (Few)
[2023-11-07 14:30] VITALS: BP 128/96
== END 2023-11-07 15:02 | disposition home or self-care (01) ==
LOC: ER 11:52
PROVIDERS: Physician Assistant
DX: S09.90XA Unspecified injury of head, initial encounter (principal); R53.1 Weakness; R29.6 Repeated falls; I10 Essential (primary) hypertension; F20.9 Schizophrenia, unspecified; J44.9 Chronic obstructive pulmonary disease, unspecified; Z87.891 Personal history of nicotine dependence; Z79.01 Long term (current) use of anticoagulants; Z88.8 Allergy status to other drugs, medicaments and biological substances; Z88.1 Allergy status to other antibiotic agents; Z88.5 Allergy status to narcotic agent; Z88.6 Allergy status to analgesic agent; Z99.89 Dependence on other enabling machines and devices; W19.XXXA Unspecified fall, initial encounter
CPT/HCPCS: 36415; 51701; 70450; 80053; 81001; 83735; 85025; 93005; 93010; 99284-25

== ENCOUNTER 2024-06-20 13:23 | Emergency (ER) | payer OTHER ==
[~2024-06-20] VITALS: Ht 149.9 cm; Wt 79.3 kg
[~2024-06-20 13:23] MED LIST changes: +ESCI10 PO; +MONT5TCH PO; +PRAM.5 PO
[2024-06-20 14:14] LABS: BASOPHILS ABSOLUTE AUTO 0.05 K/mm3 (0.00-0.23); BASOPHILS PERCENT AUTO 1 % (0-2); EOSINOPHILS ABSOLUTE AUTO 0.02 K/mm3 (0.00-0.68); EOSINOPHILS PERCENT AUTO 0 % (0-6); Hematocrit 39.3 % (33.0-51.0); Hemoglobin 13.1 g/dL (11.5-16.0); IMMATURE GRAN ABSOLUTE AUTO 0.04 K/mm3 (0.00-0.10); IMMATURE GRAN PERCENT AUTO 1 % (0-1); LYMPHOCYTES ABSOLUTE AUTO 0.88 K/mm3 (0.84-5.20); LYMPHOCYTES PERCENT AUTO 13 % (21-46); MONOCYTES ABSOLUTE AUTO 0.44 K/mm3 (0.16-1.47); MONOCYTES PERCENT AUTO 7 % (4-13); Mean Corpuscular HGB Conc 33.3 g/dL (31.5-36.5); Mean Corpuscular Volume 93 fL (80-100); Mean Platelet Volume 10.7 fL (9.1-12.4); NEUTROPHILS ABSOLUTE AUTO 5.18 K/mm3 (1.96-9.15); NEUTROPHILS PERCENT AUTO 78 % (41-73); Platelet Count 170 K/mm3 (150-400); RDW Coefficient Variation 14.2 % (11.7-14.2); RDW Standard Deviation 46.9 fL (35.1-46.3); Red Blood Cell Count 4.23 M/mm3 (3.80-5.20); White Blood Cell Count 6.61 K/mm3 (4.00-11.30)
[2024-06-20 14:31] LABS: Albumin, Blood 3.7 g/dL (3.4-5.0); Albumin/Globulin Ratio 1.1 (0.8-1.8); Bilirubin, Total 0.3 mg/dL (0.1-1.0); Bun/Creatinine Ratio 18.3 (12.0-20.0); Calcium, Blood 8.8 mg/dL (8.5-10.1); Creatinine, Blood 0.93 mg/dL (0.40-1.00); Globulin, Blood 3.3 g/dL (2.2-4.0); Magnesium, Blood 2.2 mg/dL (1.6-2.4); Potassium, Blood 3.9 mmol/L (3.5-5.5)
[2024-06-20 18:00] LABS: Source, Urine Clean Catch
[2024-06-20 18:11] LABS: Appearance, Urine Clear (Clear); Bilirubin, Urine Neg (Neg); Blood, Urine 3+ (Neg); Glucose Qualitative, Urine Neg (Neg); Ketones, Urine Neg (Neg); Leukocyte Esterase, Urine Neg (Neg); Nitrite, Urine Neg (Neg); Protein, Urine Neg (Neg); Urobilinogen, Urine NORM (Normal); pH, Urine 6.5 (5.0-8.0)
[2024-06-20 18:20] LABS: Color, Urine Pale Yellow (P-Yellow)
[2024-06-20 18:21] LABS: Bacteria Rare /hpf; Squamous Epithelial Cells Rare /hpf (Few); White Blood Cells, Urine 0-2 /hpf (0-5)
[2024-06-20 19:45] VITALS: BP 157/135
== END 2024-06-20 20:01 | disposition home or self-care (01) ==
LOC: ER 13:23
PROVIDERS: Physician Assistant
DX: I10 Essential (primary) hypertension (principal); R55 Syncope and collapse; J44.89 Other specified chronic obstructive pulmonary disease; Z79.899 Other long term (current) drug therapy; Z79.51 Long term (current) use of inhaled steroids; Z88.5 Allergy status to narcotic agent; Z88.1 Allergy status to other antibiotic agents; Z88.6 Allergy status to analgesic agent; Z88.8 Allergy status to other drugs, medicaments and biological substances
CPT/HCPCS: 80053; 81001; 83735; 83880; 84484; 85025; 93005; 93010; 99284-25

== ENCOUNTER 2024-06-22 16:31 | Emergency (ER) | payer OTHER ==
[~2024-06-22] VITALS: Ht 157.5 cm; Wt 74.8 kg
[2024-06-22 16:53] LABS: BASOPHILS ABSOLUTE AUTO 0.05 K/mm3 (0.00-0.23); BASOPHILS PERCENT AUTO 1 % (0-2); EOSINOPHILS ABSOLUTE AUTO 0.03 K/mm3 (0.00-0.68); EOSINOPHILS PERCENT AUTO 0 % (0-6); Hematocrit 39.4 % (33.0-51.0); Hemoglobin 13.1 g/dL (11.5-16.0); IMMATURE GRAN ABSOLUTE AUTO 0.03 K/mm3 (0.00-0.10); IMMATURE GRAN PERCENT AUTO 0 % (0-1); LYMPHOCYTES ABSOLUTE AUTO 1.26 K/mm3 (0.84-5.20); LYMPHOCYTES PERCENT AUTO 17 % (21-46); MONOCYTES ABSOLUTE AUTO 0.65 K/mm3 (0.16-1.47); MONOCYTES PERCENT AUTO 9 % (4-13); Mean Corpuscular HGB 30.8 pg (26.0-34.0); Mean Corpuscular HGB Conc 33.2 g/dL (31.5-36.5); Mean Corpuscular Volume 93 fL (80-100); Mean Platelet Volume 10.7 fL (9.1-12.4); NEUTROPHILS ABSOLUTE AUTO 5.38 K/mm3 (1.96-9.15); NEUTROPHILS PERCENT AUTO 73 % (41-73); Platelet Count 200 K/mm3 (150-400); RDW Coefficient Variation 14.2 % (11.7-14.2); RDW Standard Deviation 47.6 fL (35.1-46.3); Red Blood Cell Count 4.26 M/mm3 (3.80-5.20)
[2024-06-22 17:17] LABS: Albumin, Blood 3.6 g/dL (3.4-5.0); Albumin/Globulin Ratio 1.1 (0.8-1.8); Bilirubin, Total 0.3 mg/dL (0.1-1.0); Bun/Creatinine Ratio 19.3 (12.0-20.0); Calcium, Blood 8.5 mg/dL (8.5-10.1); Creatinine, Blood 0.93 mg/dL (0.40-1.00); Globulin, Blood 3.4 g/dL (2.2-4.0); Potassium, Blood 3.9 mmol/L (3.5-5.5)
[2024-06-22] MEDS ORDERED: CATAPRES0.1 MG PO (17:59)
[2024-06-22 19:05] VITALS: BP 156/69
== END 2024-06-22 19:18 | disposition home or self-care (01) ==
LOC: ER 16:31
PROVIDERS: Physician Assistant
DX: I10 Essential (primary) hypertension (principal); J44.9 Chronic obstructive pulmonary disease, unspecified; Z79.899 Other long term (current) drug therapy; Z79.01 Long term (current) use of anticoagulants; Z88.8 Allergy status to other drugs, medicaments and biological substances; Z88.5 Allergy status to narcotic agent; Z88.6 Allergy status to analgesic agent
CPT/HCPCS: 80053; 85025

== ENCOUNTER 2024-11-02 12:25 | Emergency (ER) | payer OTHER ==
[~2024-11-02] VITALS: Ht 157.5 cm; Wt 81.7 kg
[~2024-11-02 12:25] MED LIST changes: +CATAPRES0.1 MG PO
[2024-11-02 12:46] VITALS: BP 169/84
[2024-11-02 13:34] LABS: BASOPHILS ABSOLUTE AUTO 0.03 K/mm3 (0.00-0.23); BASOPHILS PERCENT AUTO 0 % (0-2); EOSINOPHILS ABSOLUTE AUTO 0.04 K/mm3 (0.00-0.68); EOSINOPHILS PERCENT AUTO 1 % (0-6); Hematocrit 36.5 % (33.0-51.0); Hemoglobin 11.9 g/dL (11.5-16.0); IMMATURE GRAN ABSOLUTE AUTO 0.05 K/mm3 (0.00-0.10); IMMATURE GRAN PERCENT AUTO 1 % (0-1); LYMPHOCYTES ABSOLUTE AUTO 0.64 K/mm3 (0.84-5.20); LYMPHOCYTES PERCENT AUTO 8 % (21-46); MONOCYTES ABSOLUTE AUTO 0.42 K/mm3 (0.16-1.47); MONOCYTES PERCENT AUTO 5 % (4-13); Mean Corpuscular HGB 31.5 pg (26.0-34.0); Mean Corpuscular HGB Conc 32.6 g/dL (31.5-36.5); Mean Corpuscular Volume 97 fL (80-100); Mean Platelet Volume 10.5 fL (9.1-12.4); NEUTROPHILS ABSOLUTE AUTO 6.88 K/mm3 (1.96-9.15); NEUTROPHILS PERCENT AUTO 85 % (41-73); Platelet Count 205 K/mm3 (150-400); RDW Coefficient Variation 14.3 % (11.7-14.2); RDW Standard Deviation 49.9 fL (35.1-46.3); Red Blood Cell Count 3.78 M/mm3 (3.80-5.20); White Blood Cell Count 8.06 K/mm3 (4.00-11.30)
[2024-11-02 14:25] LABS: Albumin, Blood 3.3 g/dL (3.4-5.0); Albumin/Globulin Ratio 0.9 (0.8-1.8); Bilirubin, Total 0.4 mg/dL (0.1-1.0); Bun/Creatinine Ratio 15.9 (12.0-20.0); Creatinine, Blood 1.07 mg/dL (0.40-1.00); Globulin, Blood 3.6 g/dL (2.2-4.0); Potassium, Blood 3.8 mmol/L (3.5-5.5); Total Protein, Blood 6.9 g/dL (6.4-8.2)
[2024-11-02 15:44] LABS: Source, Urine Clean Catch
[2024-11-02 15:49] LABS: Appearance, Urine Clear (Clear); Bilirubin, Urine Neg (Neg); Blood, Urine 3+ (Neg); Color, Urine Yellow (P-Yellow); Glucose Qualitative, Urine Neg (Neg); Ketones, Urine Neg (Neg); Leukocyte Esterase, Urine 1+ (Neg); Nitrite, Urine Neg (Neg); Protein, Urine 1+ (Neg); Specific Gravity, Urine 1.015 (1.003-1.022); Urobilinogen, Urine NORM (Normal)
[2024-11-02 16:06] LABS: Bacteria Few /hpf; Red Blood Cells, Urine 0-2 /hpf (0-2); Squamous Epithelial Cells Rare /hpf (Few); White Blood Cells, Urine 0-2 /hpf (0-5)
== END 2024-11-02 19:39 | disposition home or self-care (01) ==
LOC: ER 12:25
PROVIDERS: Physician Assistant
DX: R60.0 Localized edema (principal); I10 Essential (primary) hypertension; J44.89 Other specified chronic obstructive pulmonary disease; Z88.1 Allergy status to other antibiotic agents; Z88.8 Allergy status to other drugs, medicaments and biological substances; Z79.01 Long term (current) use of anticoagulants
CPT/HCPCS: 80053; 81001; 83690; 83880; 85025; 87086; 93970; 99284-25

== ENCOUNTER 2025-02-07 10:12 | Emergency (ER) | payer OTHER ==
[~2025-02-07] VITALS: Ht 157.5 cm; Wt 89.4 kg
[2025-02-07] MEDS ORDERED: Ipratropium/Albuterol SulF 2.5-0.5MG/3 ML Amp INH ONE (10:55)
[2025-02-07 11:14] LABS: BASOPHILS ABSOLUTE AUTO 0.01 K/mm3 (0.00-0.23); BASOPHILS PERCENT AUTO 0 % (0-2); EOSINOPHILS ABSOLUTE AUTO 0.02 K/mm3 (0.00-0.68); EOSINOPHILS PERCENT AUTO 0 % (0-6); Hematocrit 35.9 % (33.0-51.0); IMMATURE GRAN ABSOLUTE AUTO 0.02 K/mm3 (0.00-0.10); IMMATURE GRAN PERCENT AUTO 0 % (0-1); LYMPHOCYTES ABSOLUTE AUTO 0.33 K/mm3 (0.84-5.20); LYMPHOCYTES PERCENT AUTO 6 % (21-46); MONOCYTES ABSOLUTE AUTO 0.84 K/mm3 (0.16-1.47); MONOCYTES PERCENT AUTO 16 % (4-13); Mean Corpuscular HGB 31.6 pg (26.0-34.0); Mean Corpuscular HGB Conc 33.4 g/dL (31.5-36.5); Mean Corpuscular Volume 95 fL (80-100); Mean Platelet Volume 11.1 fL (9.1-12.4); NEUTROPHILS ABSOLUTE AUTO 4.07 K/mm3 (1.96-9.15); NEUTROPHILS PERCENT AUTO 77 % (41-73); Platelet Count 147 K/mm3 (150-400); RDW Coefficient Variation 14.4 % (11.7-14.2); RDW Standard Deviation 48.8 fL (35.1-46.3); White Blood Cell Count 5.29 K/mm3 (4.00-11.30)
[2025-02-07 11:31] LABS: Bun/Creatinine Ratio 14.9 (12.0-20.0); Calcium, Blood 8.9 mg/dL (8.5-10.1); Creatinine, Blood 1.14 mg/dL (0.40-1.00); Potassium, Blood 3.9 mmol/L (3.5-5.5)
[2025-02-07 11:40] LABS: CORONAVIRUS COVID-19 AG Negative (NEGATIVE); INFLUENZA A AG Negative (NEGATIVE); INFLUENZA B AG Negative (NEGATIVE)
[2025-02-07] MEDS ORDERED: Azithromycin 250 MG Tab PO ONE (12:50)
[2025-02-07] MEDS ORDERED: AMOCLA875 PO (12:50)
[2025-02-07] MEDS ORDERED: Amoxicillin/Clavulanate K 875 MG Tab PO ONE (12:50)
[2025-02-07] MEDS ORDERED: AZIT250 PO (12:50)
[2025-02-07 13:00] VITALS: BP 140/79
== END 2025-02-07 13:10 | disposition home or self-care (01) ==
LOC: ER 10:12
PROVIDERS: Student in an Organized Health Care Education/Training Program
DX: J44.0 Chronic obstructive pulmonary disease with (acute) lower respiratory infection (principal); J18.9 Pneumonia, unspecified organism; J45.909 Unspecified asthma, uncomplicated; Z88.8 Allergy status to other drugs, medicaments and biological substances; Z88.6 Allergy status to analgesic agent; Z88.1 Allergy status to other antibiotic agents; Z88.5 Allergy status to narcotic agent; Z79.899 Other long term (current) drug therapy; Z79.891 Long term (current) use of opiate analgesic; Z79.631 Long term (current) use of antimetabolite agent; Z79.51 Long term (current) use of inhaled steroids; Z16.32 Resistance to antifungal drug(s); Z79.01 Long term (current) use of anticoagulants; Z79.84 Long term (current) use of oral hypoglycemic drugs; Z79.1 Long term (current) use of non-steroidal anti-inflammatories (NSAID); Z79.83 Long term (current) use of bisphosphonates
CPT/HCPCS: 71046; 80048; 85025; 87428-QW; 94640; 94664; 99284-25; A9270

== ENCOUNTER → 2025-02-14 | Outpatient (CLI) | payer OTHER ==
[~2025-02-14] MED LIST changes: +AMOCLA875 PO; +AZIT250 PO
[2025-02-14 11:36] LABS: BASOPHILS ABSOLUTE AUTO 0.02 K/mm3 (0.00-0.23); BASOPHILS PERCENT AUTO 2 % (0-2); EOSINOPHILS ABSOLUTE AUTO 0.01 K/mm3 (0.00-0.68); EOSINOPHILS PERCENT AUTO 1 % (0-6); Hematocrit 33.9 % (33.0-51.0); Hemoglobin 11.2 g/dL (11.5-16.0); IMMATURE GRAN ABSOLUTE AUTO 0.02 K/mm3 (0.00-0.10); IMMATURE GRAN PERCENT AUTO 2 % (0-1); LYMPHOCYTES ABSOLUTE AUTO 0.56 K/mm3 (0.84-5.20); LYMPHOCYTES PERCENT AUTO 42 % (21-46); MONOCYTES ABSOLUTE AUTO 0.31 K/mm3 (0.16-1.47); MONOCYTES PERCENT AUTO 23 % (4-13); Mean Corpuscular HGB 30.4 pg (26.0-34.0); Mean Corpuscular Volume 92 fL (80-100); Mean Platelet Volume 10.8 fL (9.1-12.4); NEUTROPHILS ABSOLUTE AUTO 0.43 K/mm3 (1.96-9.15); NEUTROPHILS PERCENT AUTO 32 % (41-73); Platelet Count 167 K/mm3 (150-400); RDW Coefficient Variation 14.9 % (11.7-14.2); RDW Standard Deviation 49.5 fL (35.1-46.3); Red Blood Cell Count 3.68 M/mm3 (3.80-5.20); White Blood Cell Count 1.35 K/mm3 (4.00-11.30)
[2025-02-14 11:51] LABS: Albumin, Blood 2.9 g/dL (3.4-5.0); Albumin/Globulin Ratio 0.7 (0.8-1.8); Bilirubin, Total 0.5 mg/dL (0.1-1.0); Calcium, Blood 9.1 mg/dL (8.5-10.1); Creatinine, Blood 1.17 mg/dL (0.40-1.00); Globulin, Blood 4.1 g/dL (2.2-4.0)
[2025-02-14 12:05] LABS: BAND PERCENT MAN 3 % (0-8); BASOPHILS ABSOLUTE MAN 0.02 K/mm3 (0.00-0.23); BASOPHILS PERCENT MAN 2 % (0-2); EOSINOPHILS ABSOLUTE MAN 0.01 K/mm3 (0.00-0.68); EOSINOPHILS PERCENT MAN 1 % (0-6); LYMPHOCYTES ABSOLUTE MAN 0.59 K/mm3 (0.84-5.20); LYMPHOCYTES PERCENT MAN 44 % (21-46); METAMYELOCYTE ABSOLUTE MAN 0.01 K/mm3 (0.00-0.00); METAMYELOCYTE PERCENT MAN 1 % (0-0); MONOCYTES ABSOLUTE MAN 0.28 K/mm3 (0.16-1.47); MONOCYTES PERCENT MAN 21 % (4-13); MYELOCYTE ABSOLUTE MAN 0.01 K/mm3 (0.00-0.00); MYELOCYTE PERCENT MAN 1 % (0-0); SEG NEUTROPHILS PERCENT MAN 27 % (41-73)
== END ==
LOC: LAB SHORT 11:31 → LAB 11:31
DX: R06.02 Shortness of breath (principal)
CPT/HCPCS: 80053; 85025

== ENCOUNTER 2025-05-26 18:18 | Emergency (ER) | payer OTHER ==
[~2025-05-26] VITALS: Ht 157.5 cm; Wt 86.2 kg
[2025-05-26 19:02] LABS: Hematocrit 34.3 % (33.0-51.0); Hemoglobin 11.1 g/dL (11.5-16.0); Mean Corpuscular HGB Conc 32.4 g/dL (31.5-36.5); Mean Corpuscular Volume 95 fL (80-100); NRBC ABSOLUTE 0.00 K/mm3 (0.00-0.02); NRBC Auto 0.0 /100 WBC (0.0-0.2); Platelet Count 191 K/mm3 (150-400); RDW Coefficient Variation 15.1 % (11.7-14.2); RDW Standard Deviation 51.3 fL (35.1-46.3)
[2025-05-26 19:23] LABS: BASOPHILS ABSOLUTE MAN 0.00 K/mm3 (0.00-0.23); BASOPHILS PERCENT MAN 0 % (0-2); EOSINOPHILS ABSOLUTE MAN 0.06 K/mm3 (0.00-0.68); EOSINOPHILS PERCENT MAN 1 % (0-6); LYMPHOCYTES ABSOLUTE MAN 1.06 K/mm3 (0.84-5.20); LYMPHOCYTES PERCENT MAN 17 % (21-46); MONOCYTES ABSOLUTE MAN 0.12 K/mm3 (0.16-1.47); MONOCYTES PERCENT MAN 2 % (4-13); NEUTROPHILS ABSOLUTE MAN 5.02 K/mm3 (1.96-9.15); SEG NEUTROPHILS PERCENT MAN 80 % (41-73)
[2025-05-26 19:34] LABS: Alanine Aminotransfer (ALT/SGP 40.0 U/L (12-78); Albumin, Blood 3.0 g/dL (3.4-5.0); Albumin/Globulin Ratio 0.9 (0.8-1.8); Anion Gap 9.0 mmol/L (3-11); Aspartate Aminotrans (AST/SGOT 35.0 U/L (12-37); Bilirubin, Total 0.7 mg/dL (0.1-1.0); Blood Urea Nitrogen 20.0 mg/dL (8-24); CO2, Blood 23.0 mmol/L (21-32); Calcium, Blood 8.7 mg/dL (8.5-10.1); Chloride, Blood 105.0 mmol/L (98-108); Creatinine, Blood 1.41 mg/dL (0.40-1.00); Globulin, Blood 3.3 g/dL (2.2-4.0); Glucose, Blood 100.0 mg/dL (70-99); Potassium, Blood 3.7 mmol/L (3.5-5.5); Sodium, Blood 133.0 mmol/L (136-145); Total Protein, Blood 6.3 g/dL (6.4-8.2)
[2025-05-26 20:12] LABS: pH Blood Venous 7.36 (7.34-7.37)
[2025-05-26 21:06] LABS: Source, Urine Clean Catch
[2025-05-26 21:10] LABS: Bilirubin, Urine Neg (Neg); Color, Urine Yellow (P-Yellow); Glucose Qualitative, Urine 2+ (Neg); Ketones, Urine Neg (Neg); Leukocyte Esterase, Urine Neg (Neg); Protein, Urine Neg (Neg); Specific Gravity, Urine 1.010 (1.003-1.022); Urobilinogen, Urine NORM (Normal)
[2025-05-26 22:00] VITALS: BP 132/70
== END 2025-05-26 22:01 | disposition home or self-care (01) ==
LOC: ER 18:18
PROVIDERS: Student in an Organized Health Care Education/Training Program
DX: R53.1 Weakness (principal); R11.2 Nausea with vomiting, unspecified; I10 Essential (primary) hypertension; J44.89 Other specified chronic obstructive pulmonary disease; F03.90 Unspecified dementia, unspecified severity, without behavioral disturbance, psychotic disturbance, mood disturbance, and anxiety; Z86.718 Personal history of other venous thrombosis and embolism; Z88.8 Allergy status to other drugs, medicaments and biological substances; Z88.6 Allergy status to analgesic agent; Z88.1 Allergy status to other antibiotic agents; Z88.5 Allergy status to narcotic agent; Z79.01 Long term (current) use of anticoagulants; Z79.899 Other long term (current) drug therapy
CPT/HCPCS: 71046; 80053; 81003; 82803; 83690; 83880; 84484; 85025; 93005; 93010; 99285-25

== ENCOUNTER 2025-06-07 16:53 | Inpatient (IN) | payer OTHER ==
[~2025-06-07] VITALS: Ht 154.9 cm; Wt 89.3 kg
[~2025-06-07 16:53] MED LIST changes: -ALBU2.5V5; +ALBU2.5V5 NEB; -ESCI10 PO; +ESCITALOPRAM OXA5 MG PO; +MIRAPEX0.75 M1 PO; -PRAM.5 PO
[2025-06-07 17:42] LABS: BASOPHILS ABSOLUTE AUTO 0.02 K/mm3 (0.00-0.23); BASOPHILS PERCENT AUTO 0 % (0-2); EOSINOPHILS ABSOLUTE AUTO 0.10 K/mm3 (0.00-0.68); EOSINOPHILS PERCENT AUTO 2 % (0-6); Hematocrit 30.2 % (33.0-51.0); Hemoglobin 10.1 g/dL (11.5-16.0); IMMATURE GRAN ABSOLUTE AUTO 0.04 K/mm3 (0.00-0.10); IMMATURE GRAN PERCENT AUTO 1 % (0-1); LYMPHOCYTES ABSOLUTE AUTO 0.81 K/mm3 (0.84-5.20); LYMPHOCYTES PERCENT AUTO 17 % (21-46); MONOCYTES ABSOLUTE AUTO 0.54 K/mm3 (0.16-1.47); MONOCYTES PERCENT AUTO 11 % (4-13); Mean Corpuscular HGB Conc 33.4 g/dL (31.5-36.5); Mean Corpuscular Volume 94 fL (80-100); NEUTROPHILS ABSOLUTE AUTO 3.37 K/mm3 (1.96-9.15); NEUTROPHILS PERCENT AUTO 69 % (41-73); NRBC ABSOLUTE 0.00 K/mm3 (0.00-0.02); NRBC Auto 0.0 /100 WBC (0.0-0.2); Platelet Count 192 K/mm3 (150-400); RDW Coefficient Variation 15.3 % (11.7-14.2); RDW Standard Deviation 51.0 fL (35.1-46.3)
[2025-06-07] MEDS ORDERED: Ampicillin Sod/Sulbactam Sod 3 GM in NS 100 ML IV ONE (17:55)
[2025-06-07] MEDS ORDERED: ASPI81CH PO (18:19)
[2025-06-07 18:27] LABS: Alanine Aminotransfer (ALT/SGP 27.0 U/L (12-78); Albumin, Blood 2.9 g/dL (3.4-5.0); Albumin/Globulin Ratio 0.7 (0.8-1.8); Anion Gap 9.0 mmol/L (3-11); Aspartate Aminotrans (AST/SGOT 25.0 U/L (12-37); Bilirubin, Total 0.4 mg/dL (0.1-1.0); Blood Urea Nitrogen 23.0 mg/dL (8-24); CO2, Blood 22.0 mmol/L (21-32); Calcium, Blood 9.4 mg/dL (8.5-10.1); Chloride, Blood 103.0 mmol/L (98-108); Creatinine, Blood 1.47 mg/dL (0.40-1.00); Globulin, Blood 4.0 g/dL (2.2-4.0); Glucose, Blood 101.0 mg/dL (70-99); Potassium, Blood 3.9 mmol/L (3.5-5.5); Sodium, Blood 130.0 mmol/L (136-145); Total Protein, Blood 6.9 g/dL (6.4-8.2)
[2025-06-07] MEDS ORDERED: PRED5 PO (18:28)
[2025-06-07] MEDS ORDERED: SPIRONOLACTONE25 MG PO (18:33)
[2025-06-07] MEDS ORDERED: Ondansetron HCl 2 MG / ML 2ML Vial IV PRN (19:40)
[2025-06-07] MEDS ORDERED: Lactobacil 2-S.Thermo-Bifido 1 1 Cap PO SCH (21:00)
[2025-06-07 22:07] VITALS: BP 153/54
--- NOTE | 2025-06-07 23:41 | NUR ---
ADMIT NOTE 89 YR OLD FEMALE ADMITTED TO FLOOR FROM THE ER WITH DX OF RIGHT LEG CELLULITIS. REPORTEDLY THAT SHE WAS ON ANTIBIOTICS BUT THEY WERE STOPPED 06/04/25 AND CELLULITIS GOT WORSE AND CAME INTO THE ER TODAY FOR TREATMENT. PT IS ALERT TO QUESTIONS ASKED, SOME APPARENT FORGETFULNESS. HX ASTHMA, HTN, DEMENTIA AND RIGHT KNEE CARPAL TUNNEL. VSS. ORIENTED TO USE OF CALL LIGHT. CALL LIGHT IN REACH, RAILS UP X 2 AND BED IN LOW POSITION. WILL MONITOR.
[2025-06-08 02:16] VITALS: BP 129/57
--- NOTE | 2025-06-08 04:12 | NUR ---
SR. LOGISTICS ANALYST SUMMARY VSS. ADMITTED EARLIER IN THE SHIFT WITH DX OF RIGHT LEG CELLULITIS. HAD BEEN TAKING ANTIBIOTICS PRIOR TO 06/04/25, THEN WERE STOPPED. UNKNOWN REASON. THEN CELLULITIS GOT WORSE. CAME IN TO THE HOSPITAL FOR TREATMENT. ALERT ORIENTED X 4, BUT HX OF DEMENTIA, NOTE INTERMITTENT ANXIOUS BEHAVIOR. ORIENTED TO USE OF CALL LIGHT. RIGHT LOWER LEG RED AND SWOLLEN - SEE PIC IN CHART. IN BED, ENCOURGED TO REMAIN IN BED SHE IS WEAK IN BLE. HAS BEEN RESTING INTERMITTENTLY. CALL LIGHT IN REACH, RAILS UP X 2, BED IN LOW POSITION AND BED ALARM ON FOR SAFETY. WILL MONITOR
[2025-06-08 04:35] LABS: BASOPHILS ABSOLUTE AUTO 0.02 K/mm3 (0.00-0.23); BASOPHILS PERCENT AUTO 0 % (0-2); EOSINOPHILS ABSOLUTE AUTO 0.13 K/mm3 (0.00-0.68); EOSINOPHILS PERCENT AUTO 3 % (0-6); Hematocrit 27.8 % (33.0-51.0); Hemoglobin 9.2 g/dL (11.5-16.0); IMMATURE GRAN ABSOLUTE AUTO 0.05 K/mm3 (0.00-0.10); IMMATURE GRAN PERCENT AUTO 1 % (0-1); LYMPHOCYTES ABSOLUTE AUTO 0.67 K/mm3 (0.84-5.20); LYMPHOCYTES PERCENT AUTO 14 % (21-46); MONOCYTES ABSOLUTE AUTO 0.32 K/mm3 (0.16-1.47); MONOCYTES PERCENT AUTO 7 % (4-13); Mean Corpuscular HGB Conc 33.1 g/dL (31.5-36.5); Mean Corpuscular Volume 94 fL (80-100); NEUTROPHILS ABSOLUTE AUTO 3.50 K/mm3 (1.96-9.15); NEUTROPHILS PERCENT AUTO 75 % (41-73); NRBC ABSOLUTE 0.00 K/mm3 (0.00-0.02); NRBC Auto 0.0 /100 WBC (0.0-0.2); Platelet Count 180 K/mm3 (150-400); RDW Coefficient Variation 15.4 % (11.7-14.2); RDW Standard Deviation 51.3 fL (35.1-46.3)
[2025-06-08 08:21] VITALS: BP 97/51
[2025-06-08] MEDS ORDERED: NS 250 ML IV PRN (08:40)
[2025-06-08] MEDS ORDERED: Ampicillin Sod/Sulbactam Sod 3 GM in NS 100 ML IV SCH (09:00)
[2025-06-08] MEDS ORDERED: Enoxaparin 30 MG/0.3 ML SYR SC SCH (09:00)
[2025-06-08 11:35] LABS: Alanine Aminotransfer (ALT/SGP 31.0 U/L (12-78); Albumin, Blood 2.5 g/dL (3.4-5.0); Albumin/Globulin Ratio 0.7 (0.8-1.8); Anion Gap 16.0 mmol/L (3-11); Aspartate Aminotrans (AST/SGOT 32.0 U/L (12-37); Bilirubin, Total 0.4 mg/dL (0.1-1.0); Blood Urea Nitrogen 23.0 mg/dL (8-24); CO2, Blood 22.0 mmol/L (21-32); Calcium, Blood 8.7 mg/dL (8.5-10.1); Chloride, Blood 105.0 mmol/L (98-108); Creatinine, Blood 1.33 mg/dL (0.40-1.00); Globulin, Blood 3.5 g/dL (2.2-4.0); Glucose, Blood 92.0 mg/dL (70-99); Magnesium, Blood 2.1 mg/dL (1.6-2.4); Potassium, Blood 3.9 mmol/L (3.5-5.5); Sodium, Blood 139.0 mmol/L (136-145); Total Protein, Blood 6.0 g/dL (6.4-8.2)
[2025-06-08] MEDS ORDERED: Albuterol 2.5 MG/3 ML VIAL INH PRN (12:50)
[2025-06-08] MEDS ORDERED: Formoterol/Mometasone MDI 5/100 mcg 13 GM INH SCH (13:05)
--- NOTE | 2025-06-08 17:01 | NUR ---
SHIFT SUMMARY PATIENT ALERT AND INTERACTIVE. PATIENT FORGETFUL. PATIENT UP TO COMMODE X1 WITH MAX ASSIST. PATIENT HAVING ISSUES WITH MOVING LOWER EXTREMETIES WHEN ATTEMPTING TO GET TO COMMODE. LOWER R LEG CONTINUES TO HAVE REDNESS AND TENDER TO TOUCH. PATIENT STATES THAT SHE DOES HAVE A CAT THAT MIGHT HAVE SCRATCHED HER LEG. NO OPEN WOUND SEEN. FAMILY IN AND OUT. FAMILY STATES THAT SHE HAS TROUBLE SOME DAYS WITH HER LEGS.
--- NOTE | 2025-06-08 18:37 | NUR ---
1835- PT TRANSFERRED TO ROOM 345 IN STABLE CONDITION. PT ON RA. SKIN CHECK PERFORMED W/CRIS Zuniga RN. PT HAS EXCORIATION ON GROIN FROM BRIEF/MOISTURE AND RLE REDNESS/CELLULITIS.
[2025-06-08 20:00] VITALS: BP 152/92
--- NOTE | 2025-06-09 04:02 | NUR ---
SHIFT SUMMARY PATIENT AXOX 3 AND FORGETFUL. HX DEMENTIA. BEDREST. DENIES CHEST PAIN, SOB, AND N/V. VSS/AFEBRILE. REPORTED RIGHT LEG PAIN X ONE AND OXYCODONE 5 MG GIVEN PER EMAR. PIV INTACT. IV ABX INFUSED. PUREWICK IN PLACE. REPORTS DOESN'T KNOW HOW TO USE CALL LIGHT AFTER BEING SHOWN. CALL LIGHT IN REACH. BED IN LOWEST POSITION. WILL CONTINUE TO MONITOR UNTIL DAY SHIFT NURSE ASSUMES CARE.
[2025-06-09 04:39] VITALS: BP 135/63
[2025-06-09 06:26] LABS: BASOPHILS ABSOLUTE AUTO 0.02 K/mm3 (0.00-0.23); BASOPHILS PERCENT AUTO 0 % (0-2); EOSINOPHILS ABSOLUTE AUTO 0.08 K/mm3 (0.00-0.68); EOSINOPHILS PERCENT AUTO 1 % (0-6); Hematocrit 27.3 % (33.0-51.0); Hemoglobin 9.1 g/dL (11.5-16.0); IMMATURE GRAN ABSOLUTE AUTO 0.02 K/mm3 (0.00-0.10); IMMATURE GRAN PERCENT AUTO 0 % (0-1); LYMPHOCYTES ABSOLUTE AUTO 0.60 K/mm3 (0.84-5.20); LYMPHOCYTES PERCENT AUTO 11 % (21-46); MONOCYTES ABSOLUTE AUTO 0.15 K/mm3 (0.16-1.47); MONOCYTES PERCENT AUTO 3 % (4-13); Mean Corpuscular HGB Conc 33.3 g/dL (31.5-36.5); Mean Corpuscular Volume 94 fL (80-100); NEUTROPHILS ABSOLUTE AUTO 4.75 K/mm3 (1.96-9.15); NEUTROPHILS PERCENT AUTO 84 % (41-73); NRBC ABSOLUTE 0.00 K/mm3 (0.00-0.02); NRBC Auto 0.0 /100 WBC (0.0-0.2); Platelet Count 183 K/mm3 (150-400); RDW Coefficient Variation 15.5 % (11.7-14.2); RDW Standard Deviation 51.7 fL (35.1-46.3)
[2025-06-09 07:16] VITALS: BP 130/60
[2025-06-09 07:22] LABS: Anion Gap 10.0 mmol/L (3-11); Blood Urea Nitrogen 18.0 mg/dL (8-24); CO2, Blood 22.0 mmol/L (21-32); Calcium, Blood 8.7 mg/dL (8.5-10.1); Chloride, Blood 106.0 mmol/L (98-108); Creatinine, Blood 1.15 mg/dL (0.40-1.00); Glucose, Blood 96.0 mg/dL (70-99); Potassium, Blood 3.7 mmol/L (3.5-5.5); Sodium, Blood 134.0 mmol/L (136-145)
[2025-06-09] MEDS ORDERED: Ampicillin Sod/Sulbactam Sod 3 GM in NS 100 ML IV SCH (08:27)
[2025-06-09] MEDS ORDERED: Folic Acid 1 MG TAB PO SCH (09:00)
[2025-06-09] MEDS ORDERED: Cholecalciferol 1000 Unit Tablet (=25MCG) PO SCH (09:00)
[2025-06-09 14:30] LABS: Hematocrit 30.7 % (33.0-51.0); Hemoglobin 10.3 g/dL (11.5-16.0)
[2025-06-09] MEDS ORDERED: POTA10T PO (15:25)
[2025-06-09] MEDS ORDERED: FARXIGA10 MG PO (15:26)
[2025-06-09] MEDS ORDERED: FELODIPINE ER5 M2 PO (15:34)
[2025-06-09 19:14] VITALS: BP 122/76
--- NOTE | 2025-06-09 19:56 | NUR ---
SUMMARY- PT AAOX4 THIS SHIFT. X2 ASSIST TO THE CHAIR. PT COMPLAINED OF FOOT PAIN/RESTLESS LEGS. MD GRECO AWARE. 100MG GABAPENTIN GIVEN THIS EVENING. REDNESS IN RLE SLIGHTLY IMPROVED THIS SHIFT.
[2025-06-09] MEDS ORDERED: Miconazole Nitrate 2% 85 GM PWD TOP SCH (21:00)
[2025-06-10 02:59] VITALS: BP 128/63
[2025-06-10 06:11] LABS: Hematocrit 27.1 % (33.0-51.0); Hemoglobin 9.0 g/dL (11.5-16.0); Mean Corpuscular HGB Conc 33.2 g/dL (31.5-36.5); Mean Corpuscular Volume 94 fL (80-100); NRBC ABSOLUTE 0.00 K/mm3 (0.00-0.02); NRBC Auto 0.0 /100 WBC (0.0-0.2); Platelet Count 191 K/mm3 (150-400); RDW Coefficient Variation 15.2 % (11.7-14.2); RDW Standard Deviation 50.3 fL (35.1-46.3)
--- NOTE | 2025-06-10 06:24 | NUR ---
SHIFT SUMMARY PT RESTLESS DURING THE NIGHT. UP TO CHAIR MULTIPLE TIMES AND BACK TO BED. PT WITH HISTORY OF RESTLESS LEGS, AND REPEATEDLY MOANS "I HAVE TO GET UP". PT 1-2 ASSIST TO TRANSFER. MEDICATED FOR PAIN PER EMAR. 1 X ORDER FOR TRAZADONE WITH SOME INCREASED ABILITY TO RELAX. PUREWICK IN PLACE DRAINING YELLOW URINE WITH SOME LEAKING DUE TO RESTLESSNESS. CELLULITIS REMAINS TO RLE. IV ANTIBIOTICS INFUSING PER ORDER. BED IN LOWEST POSITION, CALL LIGHT WITHIN REACH, SIDERAILS UP X3. BED/CHAIR ALARM IN PLACE.
[2025-06-10 06:33] LABS: Magnesium, Blood 1.9 mg/dL (1.6-2.4)
[2025-06-10 06:34] LABS: Albumin, Blood 2.4 g/dL (3.4-5.0); Anion Gap 10 mmol/L (3-11); Blood Urea Nitrogen 18 mg/dL (8-24); CO2, Blood 25 mmol/L (21-32); Calcium, Blood 8.8 mg/dL (8.5-10.1); Chloride, Blood 104 mmol/L (98-108); Creatinine, Blood 1.12 mg/dL (0.40-1.00); Glucose, Blood 90 mg/dL (70-99); Phosphorus, Blood 3.7 mg/dL (2.5-4.9); Potassium, Blood 3.7 mmol/L (3.5-5.5); Sodium, Blood 135 mmol/L (136-145)
[2025-06-10 06:40] LABS: BASOPHILS ABSOLUTE MAN 0.00 K/mm3 (0.00-0.23); BASOPHILS PERCENT MAN 0 % (0-2); EOSINOPHILS ABSOLUTE MAN 0.15 K/mm3 (0.00-0.68); EOSINOPHILS PERCENT MAN 3 % (0-6); LYMPHOCYTES ABSOLUTE MAN 0.26 K/mm3 (0.84-5.20); LYMPHOCYTES PERCENT MAN 5 % (21-46); MONOCYTES ABSOLUTE MAN 0.05 K/mm3 (0.16-1.47); MONOCYTES PERCENT MAN 1 % (4-13); MYELOCYTE ABSOLUTE MAN 0.05 K/mm3 (0.00-0.00); MYELOCYTE PERCENT MAN 1 % (0-0); NEUTROPHILS ABSOLUTE MAN 4.70 K/mm3 (1.96-9.15); SEG NEUTROPHILS PERCENT MAN 90 % (41-73)
[2025-06-10 07:06] VITALS: BP 109/91
--- NOTE | 2025-06-10 07:22 | NUR ---
ASSUMPTION OF CARE: THIS RN ASSUMED CARE OF PATIENT. AWAKE DURING SHIFT CHANGE REPORT. SITTING UP IN RECLINER. BREATHING EVEN AND UNLABORED c ROOM AIR. ANXIOUS AND REPEATEDLY SETTING OFF CHAIR ALARM, STATING, "I NEED TO GET OUT OF HERE" AND "I CAN'T SIT HERE". RLE ERYTHEMATOUS AND EDEMATOUS. BED IN LOWEST POSITION. CALL LIGHT WITHIN REACH. ACUTE NEEDS MET.
[2025-06-10] MEDS ORDERED: Enoxaparin 40 MG/0.4 ML SYR SC SCH (09:00)
[2025-06-10 15:28] VITALS: BP 119/47
--- NOTE | 2025-06-10 19:16 | NUR ---
[id number] SUMMARY: A&Ox4. PLEASANT AND COOPERATIVE c CARE. CALLS APPROPRIATELY AND IS ABLE TO ADVOCCATE NEEDS EFFECTIVELY. CONTINENT OF BOWEL AND BLADDERL; LBM TODAY. PUREWICK REMOVED AND PT AMBULATED TO BATHROOM FOR VOIDING. AMBULATES c 1PA c FWW & GB. REQUIRES REDIRECTION TO STAY WITHIN WALER AND UTILIZE PROPER MECHANICS. MEDS WHOLE c FLUIDS. SIGNIFICANT RESTLESS LEGS AROUND 1500 NOT RELIEVED c PRN APAP. ALSO INCREASINGLY AGITATED STARTING AROUND 1500. ONE-TIME DOSE PRN SEROQUEL 25MG ADMINISTERED WITHOUT ANY CHANGE. ROUTINE MIRAPEX ADMINISTERED EARLY WITHOUT EFFICACY. PATIENT CONTINUED TO THRASH IN BED AND UP AND DOWN BETWEEN CHAIR AND RECLINER FOR REMAINDER OF AFTERNOON, CONSTANTLY SETTING OFF BED ALARM AND CHAIR ALARM. WHEN EDUCATED ON FALL RISK SHE STATES, "I DON'T CARE". ATTEMPTED TO APPLY SCDs WITHOUT RELIEF. PLAN FOR SNF c DC. BED IN LOWEST POSITION, CALL LIGHT WITHIN REACH. REPORT TO ONCOMING NURSE.
[2025-06-10 19:24] VITALS: BP 143/106
[2025-06-11 04:56] VITALS: BP 141/65
[2025-06-11 05:34] LABS: Hematocrit 26.8 % (33.0-51.0); Hemoglobin 9.0 g/dL (11.5-16.0)
[2025-06-11 06:04] LABS: Anion Gap 11.0 mmol/L (3-11); Blood Urea Nitrogen 24.0 mg/dL (8-24); CO2, Blood 25.0 mmol/L (21-32); Calcium, Blood 8.5 mg/dL (8.5-10.1); Chloride, Blood 106.0 mmol/L (98-108); Creatinine, Blood 1.41 mg/dL (0.40-1.00); Glucose, Blood 73.0 mg/dL (70-99); Potassium, Blood 3.6 mmol/L (3.5-5.5); Sodium, Blood 138.0 mmol/L (136-145)
--- NOTE | 2025-06-11 06:34 | NUR ---
SHIFT SUMMARY PT VERY RESTLESS, IMPULSIVE, FORGETFUL AT START OF SHIFT. C/O BILAT KNEE PAIN AND RLS. MEDICATED PER EMAR. BED ALARM GOING OFF MULTIPLE TIMES BECAUSE PT COULD NOT KEEP STILL. DISORIENTED TO PLACE AND SITUATION WITH STM DEFICITS. PT CALMED AFTER 2200 AND WAS ABLE TO REST. PT AWOKE TO USE BSC AND APPEARED MORE ORIENTED AND LESS IMPULSIVE. PT MOSTLY CONTINTENT OF URINE. IV ANTIBIOTICS CONTINUE PER ORDER. RIGHT LEG REMAINS RED/WARM/SWOLLEN. BED IN LOWEST POSITION, CALL LIGHT WITHIN REACH, SIDERAILS UP X3, BED ALARM ON.
[2025-06-11 07:28] VITALS: BP 150/95
[2025-06-11 15:16] VITALS: BP 153/72
--- NOTE | 2025-06-11 18:35 | NUR ---
ASSUMED CARE OFPT A/O AND VERY PLEASENT PT THAT IS COOPERATIVE WITH ALL CARE. TRANSFER TO CHAIR WAS A ONE PERSON WITH FWW. PT WAS VERY STABLE ON FEET AND SHOWED THAT ABILITY TO USE WALKER APPROPRIATLY. PHYSICVAL THERAPY WORKED WITH PT TODAY AND GAVE A RECOMMENDATION OF HOMEHEALTH RATHER THAN SNF. FAMILY AWARE AND WILL BE PREPARED TO BRING HOME TOMORROW MORNING.
[2025-06-11 19:56] VITALS: BP 170/75
[2025-06-11 21:45] VITALS: BP 159/76
[2025-06-12 03:44] VITALS: BP 138/98
--- NOTE | 2025-06-12 03:59 | NUR ---
SUMMARY: PT AOX3, UNABLE TO TELL ME THE DATE. PT SLIGHTLY CONFUSED AND REPEATING HERSELF OVERNIGHT. DID NOT SET OFF BED ALARM OVERNIGHT. UP SBA W/FWW TO BATHROOM, HAD ONE SMALL BM OVERNIGHT, VOIDING APPROPRIATELY. HAD DIFFICLTY SLEEPING BUT WAS ABLE TO GET A COUPLE HOURS OF UNINTERRUPTED REST. RLE FROM KNEE DOWN STILL RED AND DRY. PT RECEIVED ONE DOSE OF PRN TRAZADONE FROM EMAR PER BREAK NURSE. COMPLAINTS OF SOME WHEEZING BUT DECLINES RESPIRATORY THERAPIST VISIT AT THIS TIME.
[2025-06-12 07:27] VITALS: BP 149/83
[2025-06-12] MEDS ORDERED: ACET325 PO (11:31)
[2025-06-12] MEDS ORDERED: TRAZ50 PO (11:32)
[2025-06-12] MEDS ORDERED: LACT PO (11:33)
[2025-06-12] MEDS ORDERED: AUGMENTIN 500-1 EACH PO (11:35)
[2025-06-12] MEDS ORDERED: NEBI5 PO (11:37)
--- NOTE | 2025-06-12 18:31 | NUR ---
ASSUMED CARE. PT DID VERY WELL TODAY AND FELT READY TO GO HOME. RIGHT LEG WAS STILL RED AND SWOLLEN BUT BETTER THAN DAYS BEFORE. DR DIEGO IN TO ASSESS PT AND DISCHARGE ORDERS GIVEN. LAST ANTIBIOTIC GIVEN, IV DCED PT DCED AFTER INSTRUCTIONS GIVEN.
== END 2025-06-12 13:50 | disposition home health service (06) | DRG 603 ==
LOC: ER 16:53 → MEDS 19:38
PROVIDERS: Family Medicine; Student in an Organized Health Care Education/Training Program; ADMIT Student in an Organized Health Care Education/Training Program
DX: L03.115 Cellulitis of right lower limb (principal); E87.1 Hypo-osmolality and hyponatremia; F02.83 Dementia in other diseases classified elsewhere, unspecified severity, with mood disturbance; N17.9 Acute kidney failure, unspecified; F05 Delirium due to known physiological condition; M17.10 Unilateral primary osteoarthritis, unspecified knee; M06.9 Rheumatoid arthritis, unspecified; F20.9 Schizophrenia, unspecified; Z96.641 Presence of right artificial hip joint; E88.09 Other disorders of plasma-protein metabolism, not elsewhere classified; E78.5 Hyperlipidemia, unspecified; K21.9 Gastro-esophageal reflux disease without esophagitis; E66.9 Obesity, unspecified; K76.0 Fatty (change of) liver, not elsewhere classified; J44.89 Other specified chronic obstructive pulmonary disease; G89.29 Other chronic pain; N18.32 Chronic kidney disease, stage 3b; I12.9 Hypertensive chronic kidney disease with stage 1 through stage 4 chronic kidney disease, or unspecified chronic kidney disease; G40.909 Epilepsy, unspecified, not intractable, without status epilepticus; D63.1 Anemia in chronic kidney disease; G47.00 Insomnia, unspecified; G30.9 Alzheimer's disease, unspecified; G25.81 Restless legs syndrome; B35.1 Tinea unguium; Z98.49 Cataract extraction status, unspecified eye; Z98.890 Other specified postprocedural states; Z79.82 Long term (current) use of aspirin; Z88.8 Allergy status to other drugs, medicaments and biological substances; Z88.1 Allergy status to other antibiotic agents; Z88.5 Allergy status to narcotic agent; Z79.899 Other long term (current) drug therapy; Z79.891 Long term (current) use of opiate analgesic; Z79.2 Long term (current) use of antibiotics; Z79.01 Long term (current) use of anticoagulants; Z79.51 Long term (current) use of inhaled steroids; Z86.73 Personal history of transient ischemic attack (TIA), and cerebral infarction without residual deficits; Z68.35 Body mass index [BMI] 35.0-35.9, adult
CPT/HCPCS: 36415; 73552; 73590; 80048; 80053; 80069; 83605; 83735; 84145; 85014; 85018; 85025; 85651; 86140; 87040; 93005; 93010; 93971; 94640; 94664; 94760; 96365; 97116; 97161; 97530; 99284-25; A6590; A9270; J0295; J1650; J2405; J7050; J7120; J7512

== ENCOUNTER 2025-06-24 15:55 | Inpatient (IN) | payer OTHER ==
[~2025-06-24] VITALS: Ht 157.5 cm; Wt 85.8 kg
[~2025-06-24 15:55] MED LIST changes: +ACET325 PO; +AUGMENTIN 500-1 EACH PO; +FARXIGA10 MG PO; +FELODIPINE ER5 M2 PO; +LACT PO; +NEBI5 PO; +SPIRONOLACTONE25 MG PO; +TRAZ50 PO; +Vitamin D1000 UNI1 PO
[2025-06-24 17:05] LABS: C-REACTIVE PROTEIN, EXT RANGE 8.0 mg/dL (0.000-0.300)
[2025-06-24 17:06] LABS: Alanine Aminotransfer (ALT/SGP 29.0 U/L (12-78); Albumin, Blood 3.1 g/dL (3.4-5.0); Albumin/Globulin Ratio 0.7 (0.8-1.8); Anion Gap 9.0 mmol/L (3-11); Aspartate Aminotrans (AST/SGOT 33.0 U/L (12-37); Bilirubin, Total 0.4 mg/dL (0.1-1.0); Blood Urea Nitrogen 15.0 mg/dL (8-24); CO2, Blood 25.0 mmol/L (21-32); Calcium, Blood 9.1 mg/dL (8.5-10.1); Chloride, Blood 105.0 mmol/L (98-108); Creatinine, Blood 1.23 mg/dL (0.40-1.00); Globulin, Blood 4.2 g/dL (2.2-4.0); Glucose, Blood 102.0 mg/dL (70-99); Potassium, Blood 4.0 mmol/L (3.5-5.5); Sodium, Blood 135.0 mmol/L (136-145); Total Protein, Blood 7.3 g/dL (6.4-8.2)
[2025-06-24] MEDS ORDERED: Ampicillin Sod/Sulbactam Sod 3 GM in NS 100 ML IV ONE (19:45)
[2025-06-24 20:36] LABS: BASOPHILS ABSOLUTE AUTO 0.04 K/mm3 (0.00-0.23); BASOPHILS PERCENT AUTO 1 % (0-2); EOSINOPHILS ABSOLUTE AUTO 0.11 K/mm3 (0.00-0.68); EOSINOPHILS PERCENT AUTO 2 % (0-6); Hematocrit 31.2 % (33.0-51.0); Hemoglobin 10.0 g/dL (11.5-16.0); IMMATURE GRAN ABSOLUTE AUTO 0.06 K/mm3 (0.00-0.10); IMMATURE GRAN PERCENT AUTO 1 % (0-1); LYMPHOCYTES ABSOLUTE AUTO 0.74 K/mm3 (0.84-5.20); LYMPHOCYTES PERCENT AUTO 14 % (21-46); MONOCYTES ABSOLUTE AUTO 0.45 K/mm3 (0.16-1.47); MONOCYTES PERCENT AUTO 9 % (4-13); Mean Corpuscular HGB Conc 32.1 g/dL (31.5-36.5); Mean Corpuscular Volume 96 fL (80-100); NEUTROPHILS ABSOLUTE AUTO 3.92 K/mm3 (1.96-9.15); NEUTROPHILS PERCENT AUTO 74 % (41-73); NRBC ABSOLUTE 0.00 K/mm3 (0.00-0.02); NRBC Auto 0.0 /100 WBC (0.0-0.2); Platelet Count 281 K/mm3 (150-400); RDW Coefficient Variation 15.8 % (11.7-14.2); RDW Standard Deviation 54.4 fL (35.1-46.3)
[2025-06-24] MEDS ORDERED: Albuterol 2.5 MG/3 ML VIAL INH PRN (21:05)
[2025-06-24] MEDS ORDERED: Formoterol/Mometasone MDI 5/200 mcg 13 GM INH SCH (21:15)
[2025-06-24] MEDS ORDERED: Lactobacil 2-S.Thermo-Bifido 1 1 Cap PO SCH (22:48)
[2025-06-24 23:21] VITALS: BP 151/65
[2025-06-24] MEDS ORDERED: NS 250 ML IV PRN (23:40)
[2025-06-25] MEDS ORDERED: Piperacillin/Tazobactam Sod 3.375 GM in NS 100 ML IV SCH
--- NOTE | 2025-06-25 05:05 | NUR ---
Shift Summary Arrived from ED around 2300 via Sidecar. 1PA stand pivot from gurney to bed. Tolerates weight bearing to RLE, though it is red and swollen. Medicated for 3/10 pain to RLE and back with good effect. AO to situation, self/family, and hospital, but very forgetful. Easy to redirect. Med rec incomplete. [id number] will bring in med list for med reconciliation today. Staff is to reach out to Daughter in low, even at night, should the patient become restless and confused; this is to calm and redirect patient. Uses FWW at baseline. Patient pulled out IV tonight and did not even know she pulled it. Another IV placed and secured. Bed in lowest position. Call light in reach.
[2025-06-25 05:23] VITALS: BP 107/51
[2025-06-25 07:02] VITALS: BP 128/67
[2025-06-25] MEDS ORDERED: Enoxaparin 40 MG/0.4 ML SYR SC SCH (09:00)
[2025-06-25] MEDS ORDERED: CALCIUM 600 WI1 EAC1 PO (14:16)
[2025-06-25] MEDS ORDERED: IRON PO (14:35)
[2025-06-25] MEDS ORDERED: Diovan160 MG PO (14:36)
[2025-06-25] MEDS ORDERED: ONDA4ODT MM (14:38)
[2025-06-25] MEDS ORDERED: ALBU90OI INH (14:39)
[2025-06-25 14:42] VITALS: BP 134/61
--- NOTE | 2025-06-25 18:22 | NUR ---
NO ACUTE CHANGES THIS SHIFT. IV ANTIBIOTICS CONTINUED. PT EVAL ORDERED FOR TOMORROW. NO OT ORDERED AT THIS TIME. PT REPORTED PAIN IN RLE DUE TO CELLULITIS, MEDICATED PER EMAR WITH GREAT EFFECT. ORIENTED X 3, INTERMITTENT CONFUSION-EASILY REORIENTED. CAN CALL SON OR DIL IF PT UNABLE TO REORIENT. PER FAMILY, THIS CAN OCCUR DURING NIGHT. SWELLING IN RLE APPEARS TO HAVE IMPROVED THROUGHOUT DAY. CONT OF URINE AND BOWEL. NO BM THIS SHIFT.
[2025-06-25 19:17] VITALS: BP 122/65
[2025-06-26] VITALS (8 sets, daily range): BP systolic 120–188; BP diastolic 49–127
--- NOTE | 2025-06-26 06:15 | NUR ---
SHIFT SUMMARY: Pt is admitted for cellulitis of the right lower leg and is a full code. Is alert and able to make needs known. Denies pain or discomfort when asked. IV to right forearm is patent with dressing that is CDI
[2025-06-26] MEDS ORDERED: Folic Acid 1 MG TAB PO SCH (09:00)
[2025-06-26] MEDS ORDERED: Cholecalciferol 1000 Unit Tablet (=25MCG) PO SCH (09:00)
[2025-06-26] MEDS ORDERED: Potassium Chloride 10 Meq Tablet SA PO SCH (09:00)
--- NOTE | 2025-06-26 18:14 | NUR ---
SHIFT SUMMARY PT AOX4, COOPERATIVE, ABLE TO MAKE NEEDS KNOWN. PT MAIN COMPLAINT OF PAIN IN RLE DUE TO CELLUTLITIS, TAKING ABX FOR. GAVE PAIN MEDS ONCE THIS AM AND NO COMPLAINT OF PAIN FOR REST OF SHIFT. TOLERATING MEDICATION, ON ROOM AIR. SBA TO BATHROOM FOR VOIDING. BED IN LOWEST POSITION, CALL LIGHT WITHIN REACH.
[2025-06-27 04:26] VITALS: BP 177/94
[2025-06-27 06:00] LABS: Anion Gap 10.0 mmol/L (3-11); Blood Urea Nitrogen 13.0 mg/dL (8-24); CO2, Blood 22.0 mmol/L (21-32); Calcium, Blood 8.4 mg/dL (8.5-10.1); Chloride, Blood 108.0 mmol/L (98-108); Creatinine, Blood 1.11 mg/dL (0.40-1.00); Glucose, Blood 88.0 mg/dL (70-99); Potassium, Blood 4.0 mmol/L (3.5-5.5); Sodium, Blood 136.0 mmol/L (136-145)
--- NOTE | 2025-06-27 06:35 | NUR ---
SHIFT SUMMARY: Pt is admitted for cellulitis of the right lower leg and is a full code. Is alert and able to make needs known.when asked about pain she stated. IV to right forearm is patent with dressing that is CDI.
[2025-06-27 07:17] VITALS: BP 154/103
[2025-06-27 17:10] VITALS: BP 140/92
--- NOTE | 2025-06-27 17:12 | NUR ---
SHIFT SUMMARY PT AOX4, COOPERATIVE, ABLE TO MAKE NEEDS KNOWN. PT IS SBA TO BATHROOM TO VOID. WANTED TO TAKE OFF RUIZ HOSE FOR A BIT, WHICH WE DID. TOLERATING MEDICATION. SUPPOSED TO CONSULT IR TOMORROW ABOUT VENOUS INSUFFICIENCY. ON ROOM AIR. BED IN LOWEST POSITION, CALL LIGHT WITHIN REACH.
[2025-06-27 19:47] VITALS: BP 142/107
[2025-06-28 03:34] VITALS: BP 184/104
[2025-06-28 07:18] VITALS: BP 155/83
[2025-06-28] MEDS ORDERED: FURO40 PO (15:43)
[2025-06-28] MEDS ORDERED: FERSU300 PO (15:44)
[2025-06-28] MEDS ORDERED: FOLI1 PO (15:49)
[2025-06-28] MEDS ORDERED: PRED5 PO (15:50)
--- NOTE | 2025-06-28 16:45 | NUR ---
DISCHARGE NOTE PT A&OX3. PT ADMITTED DUE TO CELLULITIS. PT REPORTS NO GEN PAIN/SOB/CHEST PAIN. DR. DIEGO PUT IN DISCHARGE ORDERS. D/C'D ANTIBIOTIC. IV D/C. ANTI EMBOLIC STOCKINGS WORN ALL DAY, THIS RN WALKED IN ROOM AT TIME OF DISCHARGE AND NOTICED THEM OFF. PT REPORTED "TOOK THEM OFF." THIS RN EDUCATED PT ABOUT ENTI EMBOLIC STOCKING USE. THIS RN REAPPLIED STOCKINGS. WENT OVER DISCHARGE INSTRUCTIONS AND MEDS WITH PT AND DAUGHTER IN LAW. PT WHEELED OUT VIA WHEELCHAIR BY ICT PROJECT MANAGER. PT LEFT WITH DENTURES AND PERSONAL BELONGINGS. MEDS FAXED TO PREFERRED PHARMACY,
== END 2025-06-28 16:41 | disposition home or self-care (01) | DRG 603 ==
LOC: ER 15:55 → MEDS 21:03
PROVIDERS: Emergency Medicine; Internal Medicine; Physician Assistant; ADMIT Student in an Organized Health Care Education/Training Program
DX: L03.115 Cellulitis of right lower limb (principal); I13.0 Hypertensive heart and chronic kidney disease with heart failure and stage 1 through stage 4 chronic kidney disease, or unspecified chronic kidney disease; I50.32 Chronic diastolic (congestive) heart failure; J44.89 Other specified chronic obstructive pulmonary disease; M19.90 Unspecified osteoarthritis, unspecified site; F32.A Depression, unspecified; M06.9 Rheumatoid arthritis, unspecified; N18.32 Chronic kidney disease, stage 3b; D63.1 Anemia in chronic kidney disease; G30.9 Alzheimer's disease, unspecified; F02.80 Dementia in other diseases classified elsewhere, unspecified severity, without behavioral disturbance, psychotic disturbance, mood disturbance, and anxiety; G40.909 Epilepsy, unspecified, not intractable, without status epilepticus; I87.2 Venous insufficiency (chronic) (peripheral); K21.9 Gastro-esophageal reflux disease without esophagitis; Z79.899 Other long term (current) drug therapy; Z79.51 Long term (current) use of inhaled steroids; Z79.891 Long term (current) use of opiate analgesic; Z79.52 Long term (current) use of systemic steroids; Z79.82 Long term (current) use of aspirin; Z79.2 Long term (current) use of antibiotics; Z88.8 Allergy status to other drugs, medicaments and biological substances; Z88.1 Allergy status to other antibiotic agents; Z98.890 Other specified postprocedural states; Z98.49 Cataract extraction status, unspecified eye; Z86.73 Personal history of transient ischemic attack (TIA), and cerebral infarction without residual deficits; Z86.711 Personal history of pulmonary embolism
CPT/HCPCS: 36415; 80048; 80053; 82728; 83540; 83550; 83605; 85025; 85045; 85651; 86140; 87040; 93971; 94640; 94664; 94760; 96365; 97110; 97112; 97161; 99284-25; A9270; J0295; J1650; J2543; J7512

== ENCOUNTER → 2025-09-22 | Outpatient (CLI) | payer OTHER ==
[~2025-09-22] MED LIST changes: +CALCIUM 600 WI1 EAC1 PO; +Diovan160 MG PO; +FERSU300 PO
== END ==
LOC: LAB SHORT 17:22 → LAB 17:22
DX: N39.0 Urinary tract infection, site not specified (principal)
CPT/HCPCS: 87086

== ENCOUNTER 2025-10-18 03:51 | Inpatient (IN) | payer OTHER ==
[~2025-10-18] VITALS: Ht 165.1 cm; Wt 76.0 kg
[2025-10-18] MEDS ORDERED: Ipratropium/Albuterol SulF 2.5-0.5MG/3 ML Amp INH ONE (04:05)
[2025-10-18 04:14] LABS: pH Blood Venous 7.46 (7.34-7.37)
[2025-10-18 04:22] LABS: BASOPHILS ABSOLUTE AUTO 0.07 K/mm3 (0.00-0.23); BASOPHILS PERCENT AUTO 1 % (0-2); EOSINOPHILS ABSOLUTE AUTO 0.01 K/mm3 (0.00-0.68); EOSINOPHILS PERCENT AUTO 0 % (0-6); Hematocrit 40.9 % (33.0-51.0); Hemoglobin 13.4 g/dL (11.5-16.0); IMMATURE GRAN ABSOLUTE AUTO 0.16 K/mm3 (0.00-0.10); IMMATURE GRAN PERCENT AUTO 1 % (0-1); LYMPHOCYTES ABSOLUTE AUTO 1.57 K/mm3 (0.84-5.20); LYMPHOCYTES PERCENT AUTO 12 % (21-46); MONOCYTES ABSOLUTE AUTO 1.31 K/mm3 (0.16-1.47); MONOCYTES PERCENT AUTO 10 % (4-13); Mean Corpuscular HGB Conc 32.8 g/dL (31.5-36.5); Mean Corpuscular Volume 93 fL (80-100); NEUTROPHILS ABSOLUTE AUTO 10.32 K/mm3 (1.96-9.15); NEUTROPHILS PERCENT AUTO 77 % (41-73); NRBC ABSOLUTE 0.00 K/mm3 (0.00-0.02); NRBC Auto 0.0 /100 WBC (0.0-0.2); Platelet Count 214 K/mm3 (150-400); RDW Coefficient Variation 15.8 % (11.7-14.2); RDW Standard Deviation 53.0 fL (35.1-46.3)
[2025-10-18 04:42] LABS: Alanine Aminotransfer (ALT/SGP 15.0 U/L (12-78); Albumin, Blood 2.9 g/dL (3.4-5.0); Albumin/Globulin Ratio 0.6 (0.8-1.8); Anion Gap 12.0 mmol/L (3-11); Aspartate Aminotrans (AST/SGOT 23.0 U/L (12-37); Bilirubin, Total 0.6 mg/dL (0.1-1.0); Blood Urea Nitrogen 31.0 mg/dL (8-24); CO2, Blood 19.0 mmol/L (21-32); Calcium, Blood 12.8 mg/dL (8.5-10.1); Chloride, Blood 108.0 mmol/L (98-108); Creatinine, Blood 1.2 mg/dL (0.40-1.00); Globulin, Blood 4.7 g/dL (2.2-4.0); Glucose, Blood 123.0 mg/dL (70-99); Potassium, Blood 4.2 mmol/L (3.5-5.5); Sodium, Blood 135.0 mmol/L (136-145); Total Protein, Blood 7.6 g/dL (6.4-8.2)
[2025-10-18 04:55] LABS: CORONAVIRUS COVID-19 AG Negative (NEGATIVE)
[2025-10-18] MEDS ORDERED: NS 1,000 ML IV SCH (05:25)
[2025-10-18] MEDS ORDERED: CefTRIAXone Sodium 2,000 MG in NS 100 ML IV ONE (05:35)
[2025-10-18] MEDS ORDERED: Ipratropium/Albuterol SulF 2.5-0.5MG/3 ML Amp INH SCH (05:55)
[2025-10-18] MEDS ORDERED: Ondansetron HCl 2 MG / ML 2ML Vial IV PRN (05:55)
[2025-10-18] MEDS ORDERED: FLU VACC TS2025(65UP)/MF59C/PF 45 MCG/0.5 ML SYRINGE IM SCH (05:55)
[2025-10-18] MEDS ORDERED: Ampicillin Sod/Sulbactam Sod 3 GM in NS 100 ML IV SCH (06:00)
[2025-10-18] MEDS ORDERED: Lactobacil 2-S.Thermo-Bifido 1 1 Cap PO SCH (09:00)
[2025-10-18] MEDS ORDERED: Enoxaparin 40 MG/0.4 ML SYR SC SCH (09:00)
[2025-10-18 09:21] VITALS: BP 123/64
--- NOTE | 2025-10-18 09:24 | NUR ---
PT ARRIVED THE PT ARRIVED TO THE MEDICAL FLOOR VIA GURNEY FROM THE ER. PT DROWSY HARD TO AWAKEN, SAMISH. THE PTS DAUGHTER IS AT THE BEDSIDE. PT AND FAMILY ORENTED TO THE CALL SYSTEM
[2025-10-18] MEDS ORDERED: IRON PO (11:35)
[2025-10-18] MEDS ORDERED: PROBIOTIC PO (11:38)
[2025-10-18] MEDS ORDERED: NS 250 ML IV PRN (12:35)
--- NOTE | 2025-10-18 18:36 | NUR ---
SHIFT SUMMARY PT HAS BEEN SLEEPING MOST OF THE DAY. WHEN AWAKE, PT IS CONFUSED AND DIFFICULT TO UNDERSTAND. CONTINUES TO HAVE A WEAK COUGH AND IS NPO AT THIS TIME. MEDICATED FOR BACK PAIN WITH PRN TYLENOL RECTALLY. PT ON 3L O2 VIA NC. PT MORE AWAKE THIS EVENING. NO ACUTE CHANGES. CALL LIGHT IN REACH AND BED ALARM ON FOR FALL RISK SAFETY.
[2025-10-18] MEDS ORDERED: Morphine Sulfate 4 MG/1 ML Injection IV PRN (20:00)
[2025-10-18 20:17] VITALS: BP 121/68
[2025-10-19 04:56] LABS: BASOPHILS ABSOLUTE AUTO 0.03 K/mm3 (0.00-0.23); BASOPHILS PERCENT AUTO 0 % (0-2); EOSINOPHILS ABSOLUTE AUTO 0.00 K/mm3 (0.00-0.68); EOSINOPHILS PERCENT AUTO 0 % (0-6); Hematocrit 32.4 % (33.0-51.0); Hemoglobin 10.5 g/dL (11.5-16.0); IMMATURE GRAN ABSOLUTE AUTO 0.11 K/mm3 (0.00-0.10); IMMATURE GRAN PERCENT AUTO 1 % (0-1); LYMPHOCYTES ABSOLUTE AUTO 0.97 K/mm3 (0.84-5.20); LYMPHOCYTES PERCENT AUTO 7 % (21-46); MONOCYTES ABSOLUTE AUTO 0.95 K/mm3 (0.16-1.47); MONOCYTES PERCENT AUTO 7 % (4-13); Mean Corpuscular HGB Conc 32.4 g/dL (31.5-36.5); Mean Corpuscular Volume 93 fL (80-100); NEUTROPHILS ABSOLUTE AUTO 11.44 K/mm3 (1.96-9.15); NEUTROPHILS PERCENT AUTO 85 % (41-73); NRBC ABSOLUTE 0.00 K/mm3 (0.00-0.02); NRBC Auto 0.0 /100 WBC (0.0-0.2); Platelet Count 191 K/mm3 (150-400); RDW Coefficient Variation 15.8 % (11.7-14.2); RDW Standard Deviation 52.9 fL (35.1-46.3)
[2025-10-19 04:57] LABS: pH Blood Venous 7.46 (7.34-7.37)
[2025-10-19 05:16] LABS: Anion Gap 10.0 mmol/L (3-11); Blood Urea Nitrogen 40.0 mg/dL (8-24); CO2, Blood 21.0 mmol/L (21-32); Calcium, Blood 12.5 mg/dL (8.5-10.1); Chloride, Blood 116.0 mmol/L (98-108); Creatinine, Blood 1.07 mg/dL (0.40-1.00); Glucose, Blood 151.0 mg/dL (70-99); Potassium, Blood 3.7 mmol/L (3.5-5.5); Sodium, Blood 143.0 mmol/L (136-145)
[2025-10-19 05:27] VITALS: BP 113/90
--- NOTE | 2025-10-19 05:58 | NUR ---
SHIFT SUMMARY: PT AOX1, ABLE TO FOLLOW BASIC COMMANDS AT TIMES, AND ANSWER BASIC YES OR NO QUESTIONS. COMPLAINTS OF SEVERE PAIN, TAKES PO PAIN MED AT HOME BUT IS NPO DUE TO ASPIRATION RISK. PROVIDER NOTIFIED IV PAIN MEDS GIVEN PER EMR. PT HAD A HEAVY VOID, CHANGED TOTAL CARE. VSS, NO ACUTE OVERNIGHT EVENTS, TOLERATING MEDICATIONS WELL. PT IN BED RESTING, BED IN LOWEST POSITION, CALL LIGHT IN REACH. CONTINUING CARE.
[2025-10-19 07:53] VITALS: BP 102/75
--- NOTE | 2025-10-19 09:45 | NUR ---
PALLIATIVE CARE VISIT: CONSULT RECEIVED FOR DEMENTIA, END STAGE DISEASE. MEDICAL RECORD REVIEWED. POLST ON FILE STATES DNR, FULL MEASURES. PT CURRENTLY DNR. NO POLST THROUGH [facility]. MET WITH PT AND LUDIVINA IN THE ROOM. DR. PHILLIPS AND PRIMARY RN PRESENT ON ARRIVAL DOING AM ROUNDS. LUDIVINA MEJIA IS PRESENT. THIS IS SON LISSETH'S . LISSETH IS POA. PLAN IS FOR PT TO GET SWALLOW EVAL. SPOKE TO LUDIVINA AFTER DR. PHILLIPS FINISHED ASSESSMENT. ROBERTO STATES PT LIVES WITH HER AND LISSETH. THEY TAKE CARE OF HER AND HAS A CAREGIVER. PT HAD BIRTHDAY CAKE ON SATURDAY AND SHE MAY HAVE ASPIRATED AT THAT TIME. PT HAS BEEN IN STEADY DECLINE WITH MENTATION THE PAST TWO WEEKS. PT HAS HAD WORK UP WITH DR. HODGES. AT THAT TIME DR. HODGES HAD INFORMED THEM PT IS NOT QUITE READY FOR HOSPICE BUT IS CLOSE. ROBERTO REPORTS PT HAS HAD 20 LB WEIGHT LOSS IN THE LAST 3 MONTHS. HAS NO APPETITE. IS NOW ASPIRATING ON FOOD. PT NEEDS GUIDANCE WITH AMBULATION. HER FEET WILL GET STUCK AND WHEN TOLD TO TAKE A STEP SHE WILL WALK BACKWARDS INSTEAD OF FORWARD. PT REPORTEDLY GETTING WEAKER AND MORE FORGETFUL. PT IS AWAKE AND ABLE TO ANSWER YES/NO QUESTIONS AND RESPONDS WITH 2-3 WORD SENTENCES. PT REPORTS SHE IS THIRSTY. DENIES PAIN, NAUSEA, SOB. SHE IS ON 2 LPM VIA NC. SYMPTOMS ARE CURRENTLY MANAGED. PLAN IS FOR PT TO GET SWALLOW EVAL. AFTER THIS WILL MEET WITH DIL AND SON LISSETH TO DISCUSS OPTIONS. WILL DISCUSS DISCHARGING WITH HOSPICE. IF PT FAILS SWALLOW EVAL WILL DISCUSS COMFORT CARE WUTH PLAN TO DC WITH HOSPICE.
[2025-10-19] MEDS ORDERED: CATAPRES-TTS 11 EAC1 PO (10:31)
[2025-10-19 11:11] VITALS: BP 129/69
--- NOTE | 2025-10-19 12:00 | NUR ---
"Spiritual Care Visit | Nurse request Pt. is awake in bed. Two daughters are present and welcomed this teletype operator. Facilitated a short life review and listened with empathy and engagement. Pt. displayed evidence of trust and matters of personal rivka and belief are considered. Pt. displayed evidence of some anxiety regarding her spiritual condition. Pastoral careand encouragement is given as is prayer. Pt. and family all verbalize gratitude for the spiritual care visit."
[2025-10-19 15:09] VITALS: BP 125/46
--- NOTE | 2025-10-19 15:26 | NUR ---
PALLIATIVE CARE NOTE: PT PASSED HER SWALLOW EVAL AND IS ON MINCED AND MOIST DIET WITH THIN LIQUIDS, MEDS TO BE CRUSHED. CALLED SON GRACIELA TO GIVE HIM AN UPDATE. ACCORDING TO GRACIELA HE WANTS ME TO TALK TO HIS ROBERTO ABOUT GOC. HE STATES "WE PRETTY MUCH AGREE ON EVERYTHING AND SHE WILL CALL ME BEFORE MAKING ANY FINAL DECISIONS". CALLED ROBERTO TO GIVE HER UPDATE ALSO. EXPLAINED PT MEETS CRITERIA FOR ADMISSION TO HOSPICE SERVICES. ACCORDING TO ROBERTO HER FATHER IN LAW WAS ON HOSPICE FOR 2 YEARS AND SHE CARED FOR HIM AND IS AWARE OF WHAT HOSPICE SERVICES PROVIDE. WE DISCUSSED POLST CHOICES OF DNR COMFORT MEASURES VS SELECTIVE TREATMENT. OPTIMIZING PT AND THEN HOME WITH HOSPICE VS HH VS COMFORT CARE IN THE HOSPITAL. QUESTIONS WERE ANSWERED. VERIFIED PT IS NOT TAKING MEDICATION FARXIGA WHICH CAN CAUSE WEIGHT LOSS. ACCORDING TO ROBERTO SHE IS NOT TAKING THAT MEDICATION. ALSO EDUCATED ROBERTO ON RISKS OF PT DEVELOPING HOSPITAL ACQUIRED DELIRIUM DUE TO DEMENTIA DX. ACCORDING TO ROBERTO PT HAS BEEN CONFUSED DURING PASSED HOSPITALIZATIONS AND PT CAN CALL ANYTIME NIGHT AND DAY AND SHE CAN USUALLY CALM HER DOWN WITH RE-ASSURANCE. ROBERTO STATED SHE IS CONSIDERING HOSPICE BECAUSE BRIGHT HAS BEEN TELLING HER AND GRACIELA, "I JUST WANT TO BE COMFORTABLE, JUST LET ME GO WHEN IT'S TIME". SHE CALLED GRACIELA AND DISCUSSED OPTIONS ABOVE AND CALLED BACK. ROBERTO STATED THEY WOULD LIKE BRIGHT TREATED FOR HER CURRENT ILLNESS AND THEN DISCHARGED HOME WITH [facility] PT HAS HAD [facility] IN THE PAST. UPDATED PRIMARY RN. ACCORDING TO PRIMARY RN SHE GAVE PT MORPHINE 4 MG FOR PAIN PER ORDER AND PT O2 SATS HAD DROPPED TEMPORARILY REQUIRING OXYGEN TO BE TURNED UP TO 12 LPM VIA NC BUT NOW SHE HAS TITRATED HER BACK DOWN TO PRIOR O2 LEVEL. CALLED DR. PHILLIPS AND UPDATED HIM WITH FAMILY CHOICES AND MORPHINE REACTION. ORDER RECEIVED TO DC MORPHINE AND START OXYCODONE 5 MG PO DAILY PRN. UPDATED CM1 WITH POC. WILL PLACE HOSPICE REFERRAL
--- NOTE | 2025-10-19 15:42 | NUR ---
POLST COMPLETED AND PLACED ON CHART. DNR COMFORT MEASURES ONLY. FAXED TO [facility] AND SENT TO MEDICAL RECORDS.
[2025-10-19] MEDS ORDERED: Formoterol/Mometasone MDI 5/100 mcg 13 GM INH SCH (16:50)
--- NOTE | 2025-10-19 16:59 | NUR ---
PT A/OX1. WAS ABLE TO STATE HER NAME. PT IS MARY'S IGLOO AND NEEDS FREQUENT REDIRECTION DURING CARE TASKS. PT WAS GIVEN IV MORPHINE FOR PAIN THIS SHIFT, HER O2 SATS DID DROP AND SHE REQUIRED 12L O2 NC FOR AROUND 2 MINUTES. SHE IS NOW BACK ON 3L O2 NC. PALLIATIVE MADE AWARE OF SITUATION. SEE CHANGES IN EMAR. TELE DISCONTINUED PER ORDERS. PT HAS BEEN CONNECTED TO XMLAW THIS SHIFT. SHE IS CURRENTLY RESTING IN BED, BED IS IN LOWEST POSITION. CHEST RISE AND FALL IS SYMMETRICAL. BED ALARM ARMED. NO ACUTE NEEDS AT THIS TIME.
--- NOTE | 2025-10-19 18:39 | NUR ---
PALLIATIVE CARE NOTE: PRIMARY RN REPORTED PAIN IS NOT MANAGED WITH OXYCODONE [address] PHILLIPS[address] ORDER RECEIVED FOR OXYCODONE 5 MG PO Q6 PRN. ORDER PLACED
[2025-10-19 19:22] VITALS: BP 121/56
[2025-10-19] MEDS ORDERED: LevETIRAcetam 100 MG/ML 5ML ORAL SYR PO SCH (21:00)
--- NOTE | 2025-10-20 02:44 | NUR ---
CALLED HOSPITALIST REGARDING PT NEEDING INCREASE IN O2 ADMINISTRATION UP TO 9 LPM VIA NC. O2 SATS MAINTAINING BETWEEN 88-91% ON 9 LPM. HOB ELEVATED. PT DOES NOT APPEAR SOB OR UNCOMFORTABLE. PROVIDER AWARE. NO NEW ORDERS RECEIVED. WILL CONTINUE TO MONITOR.
[2025-10-20 03:58] VITALS: BP 136/81
--- NOTE | 2025-10-20 04:49 | NUR ---
SHIFT SUMMARY A&OX1-2, SELF AND LOCATION. NOT ABLE TO MAKE NEEDS KNOWN. PT MUMBLES WORDS THAT ARE NOT APPROPRIATE TO CONVERSATION. VERY PLEASANT. OXYGEN HAS REMAINED BETWEEN 88-91% ON 9 LPM O2. HOSPITALIST INFORMED OF INCREASED O2 AND JUST CONTINUE TO MONITOR AT THIS TIME. SHE HAS NO S/S OF SOB. SHE HAS A NON-PRODUCTIVE COUGH. HOB HAS BEEN ELEVATED. WINNIE APPLIED UNDER HER TO REMOVE PRESSURE. PT REPOSITIONED FREQUENTLY FOR COMFORT. SHE MOANED AT TIMES IF IN PAIN BUT ONCE IN THE ROOM AND TALKING TO PT AND ASKED IF SHE IS IN PAIN SHE STATES "NO". PT MEDICATED PER EMAR AND SOFT MUSIC PLAYING. PT TOLERATING UNASYN INFUSIONS WELL. PUREWICK IN PLACE. CURRENTLY PT IS SLEEPING IN BED WITH HOB ELEVATED, BED IN LOWEST POSITION AND CALL LIGHT WITHIN REACH.
[2025-10-20 07:25] VITALS: BP 130/55
--- NOTE | 2025-10-20 09:58 | NUR ---
[facility]- ROUNDED WITH BRICKNER 9:00AM. XR ORDERED
--- NOTE | 2025-10-20 12:27 | NUR ---
CALL TO DR. PHILLIPS TO DISCUSS XR FINDINGS. PER HCP NO CHANGES TO CARE PLAN AT THIS TIME. PER RT PATIENT CHANGED TO 02 MASK VS NC. THIS HELPED BRING PATIENTS O2 FROM 88 TO 90% BUT SHE IS STILL REQUIRING 11/L TO MAINTAIN. PATIENT CONTINUES TO BE RESTLESS AND MUMBLING. PT MEDICATED WITH TYLENOL.
[2025-10-20] MEDS ORDERED: Prochlorperazine Edisylate 10 mg Vial IV PRN (13:05)
--- NOTE | 2025-10-20 14:07 | NUR ---
CARE CONFERENCE: BEDSIDE RN REPORTS THE PT HAS CONTINUED TO HAVE INCREASED C/O GENERALIZED PAIN AND SOB. SHE HAS ALSO REQUIRED AN INCREASE IN 02 FROM 3L VIA N/C TO 11 LITERS ON A FACEMASK. DISCUSSED THIS WITH PT'S SON LISSETH AND DR. PHILLIPS. PT'S SON REQUESTS WE FOCUSE MORE ON COMFORT AT THIS POINT, THE PATIENT IS SCHEDULED TO D/C HOME SATURDAY. PER DR. PHILLIPS, OK TO BEGIN LOW DOSE MED FOR SOB AND PAIN.
--- NOTE | 2025-10-20 14:19 | NUR ---
CALL TO PALLIATIVE CARE TO HELP WITH WHAT APPEARS TO DO BE INCREASE IN PAIN. PALLIATIVE NURSE WILL CONTACT HCP.
[2025-10-20] MEDS ORDERED: Morphine Sulfate 20 MG/1ML 1 ML Oral Syringe SL PRN (14:20)
--- NOTE | 2025-10-20 15:57 | NUR ---
SPOKE WITH LARS, PT'S SON AND DIL. PT LIVES WITH THEM, AND ROBERTO IS THE PRIMARY CAREGIVER. ROBERTO SPENT THE MAJORITY OF THE DAY HERE WITH THE PATIENT, AND NOTED BRIGHT APPEARS TO BE DECLINING. THEY ARE AWARE PT'S 02 NEEDS HAVE INCREASED, AND ARE NOW REQUESTING THE PATIENT BE MADE COMFORT CARE PRIOR TO COMING HOME WITH HOSPICE. THEY ARE NO LONGER INTERESTED IN "OPTIMIZING" THE PATIENT'S HEALTH, AND WISH TO FOCUS ON HER COMFORT. INFORMED DR. PHILLIPS.
--- NOTE | 2025-10-20 17:56 | NUR ---
SHIFT SUMMARY- PT CONTINUES TO HAVE TROUBLE KEEPING HER O2 ABOVE 88%. RT CURRENTLY HAS HER ON A NEW DEVICE TO HELP. SHE IS CURRENTLY ON 12/L. ROXINOL ADDED FOR RESTLESSNESS AND AIR HUNGRY Q2 WITH GOOD RESULTS. PT HAD POSITIVE BNP AND DDIMER LABS SO HCP ORDERED STAT PE STUDY. THOSE RESULTS ARE PENDING. FAMILY CONTINUES TO BE ACTIVE IN CARE DECISION. HCP HAS NOT CHANGED HER STATUS TO COMFORT CARE UNTIL PE STUDY IS DONE. PTS FAMILY WOULD LIKE COMFORT CARE IF THOSE RESULTS ARE NEGATIVE.
[2025-10-20 19:17] VITALS: BP 114/66
--- NOTE | 2025-10-21 05:27 | NUR ---
SHIFT SUMMARY 89 YR F ADMITTED ON 10/19/25. PE STUDY CAME BACK NEGATIVE SO PT WAS TRANSITIONED TO COMFORT CARE PER FAMILY REQUEST. THIS NURSE SPOKE W/ PT [id number], MYLA, AND CONFIRMED THIS DECISION. PT IS BEDREST AND HAS SLEPT FOR THE ENTIRETY OF THIS SHIFT. SHE WAKES TO VERBAL AND PHYSICAL STIMULI. PT MOANS AND GROANS IN HER SLEEP AND APPEARS TO BE UNCOMFORTABLE. SHE WAS MEDICATED THROUGHOUT THE SHIFT FOR PAIN, AND HAS BEEN REPOSITIONED WELL. PT IS CURRENTLY ON AIRVO AND O2 SATS ARE MAINTAINING IN THE MID 90'S. SHE HAS A NEW DX OF ARDS. BED IS IN LOW POSITION AND CALL LIGHT WITHIN REACH.
[2025-10-21] MEDS ORDERED: Morphine Sulfate 20 MG/1ML 1 ML Oral Syringe SL PRN (09:35)
[2025-10-21] MEDS ORDERED: LORazepam 2 MG/ML 1ML Injection IV PRN (09:35)
[2025-10-21] MEDS ORDERED: Ondansetron HCl 2 MG / ML 2ML Vial IV PRN (09:35)
[2025-10-21] MEDS ORDERED: Atropine Sulfate 1% Opth Soln 2ML BTL SL PRN (09:35)
--- NOTE | 2025-10-21 10:05 | NUR ---
PROVIDER BEDSIDE ROUNDING DR. PHILLIPS AT BEDSIDE FOR PT ROUNDING. PER JORGE ESTRADA TO ORDER COMFORT CARE ORDERS AND D/C NON COMFORT CARE ORDERS. PER MD, COMPLETE AIRVO ORDER AND PLACE PT ON 2L NC. IMMEDIATELY AFTER REMOVING AIRVO MASK, PT DESAT TO 55%. REPLACED AIRVO MASK. THIS RN WILL REMOVE AIRVO AFTER PT PROPERLY MEDICATED, KOTHARI PLACED, AND FAMILY AT BEDSIDE/AWARE. PER MD, D/C ALL HOSPITAL AND HOME MEDICATIONS. PER JORGE ESTRADA TO ORDER ROXINOL 5-20MG Q1 HRS PRN FOR AIRHUNGER/PAIN, ATIVAN 1-2 MG PO Q6 PRN FOR ANXIETY, AND TYLENOL 650 MG MI Q6 PRN FOR FEVER/PAIN.
--- NOTE | 2025-10-21 11:42 | NUR ---
SPOKE WITH PT DAUGHTER IN LAW, ROBERTO, VIA PHONE CALL. GAVE UPDATE TO PT COMFORT STATUS AND CARE PLAN. INFORMED ROBERTO THAT THE AIRVO HAD BEEN DISCONTINUED AND PLACED ON NASAL CANULA FOR COMFORT MEASURES. ROBERTO ALSO MADE AWARE THAT A KOTHARI CATHETER HAS BEEN PLACED. LUDIVINA EDUCATED ON COMFORT MEDICATIONS FOR PAIN AND AIR HUNGER AND ANXIETY. LUDIVINA STATES SHE IS SOMEWHAT FAMILIAR WITH THESE MEDICATIONS. INFORMED LUDIVINA OF POSSIBILITY THAT PT COULD PASS AWAY BEFORE SHE MADE IT HOME. LUDIVINA VERBALIZED UNDERSTANDING OF THIS. LUDIVINA INFORMED THAT SHE WILL BE CONTACTED WITH ANY NEW UPDATES. LUDIVINA STATES THAT SHE WILL BE UP TO VISIT PT AFTER FAMILY DINNER.
--- NOTE | 2025-10-21 13:34 | NUR ---
PT NOTED TO HAVE SHALLOW SNORE WITH INTERMITTENT SHORT PAUSE. PT WOKE TO MY ASSESSMENT BUT UNABLE TO ANSWER ANY QUESTIONS. MEDICATED PER EMAR FOR AIRHUNGER. REPOSITIONED TO RIGHT SIDE.
--- NOTE | 2025-10-21 19:19 | NUR ---
COMFORT CARE. PT NOW ON 5L NC. TITRATING O2 SLOWLY DUE TO EXTREME DROP IN O2 SATURATION. PT DIL CAME TO VISIT THIS EVENING. FAMILY ADVISED OF O2 TITRATION AND THAT IT WOULD BE USED FOR COMFORT ONLY. FAMILY VERBALIZED UNDERSTANDING OF THIS. PLEASE READ PREVIOUS NOTES FOR ADDITIONAL DETAILS. PT APPEARS TO BE RESTING COMFORTABLEY THIS EVENING, KOTHARI CATHETER DRAINING TO GRAVITY, PAIN/AIRHUNGER/ANXIETY TREATED PER EMAR. ATTEMPTED TO FEED PT SMALL TASTE OF A DESERT, PT UNABLE TO MOVE FOOD FROM TIP OF TONGUE, FOOD REMOVED AND ORAL CARE PROVIDED. Q2-3 HOURS TURNS.
[2025-10-21] MEDS ORDERED: LevETIRAcetam 100 MG/ML 5ML ORAL SYR PO SCH (21:00)
--- NOTE | 2025-10-22 04:51 | NUR ---
SHIFT SUMMARY 89 YR F ON COMFORT CARE. PT CONTINUES ON 5 L O2. SATS WERE AT 76-77 AT BEGINNING OF SHIFT AND PT APPEARED TO BE SLIGHTLY CYANOTIC. HOWEVER, SHIFT PROGRESSED, PT COLOR BEGAN TO LOOK BETTER AND HER BREATHING WAS EVEN AND UNLABORED. SHE SNORED WHILE SLEEPING. WHEN O2 SATS WERE CHECKED THEY HAD GONE UP TO 87. PT REPOSITIONED FOR COMFORT AND MEDICTED FOR COMFORT PER EMAR. SHE APPEARS TO BE RESTING COMFORTABLY AT THIS TIME W/ NO S/S OF DISTRESS.
--- NOTE | 2025-10-22 09:43 | NUR ---
rounded on pt this am. family at bedside discussed posibility of her dc with hospice. patients legs are warm to the touch, removed extra bedding. came back to the room. dr. toscano at bedside and toddler caregiver at bedside to discuss plan of discharge.
--- NOTE | 2025-10-22 10:17 | NUR ---
HCP ROUNDING- ROUNDED WITH BRICKNER. PT WILL BE DISCHARGED HOME TODAY. CASE MANAGEMENT IS INVOLVED FOR TRANSPORT.
[2025-10-22] MEDS ORDERED: ACET120S PR (12:19)
[2025-10-22] MEDS ORDERED: ATROPINE 1% EY1 EACH SL (12:21)
[2025-10-22] MEDS ORDERED: Ativan1 MG PO (12:22)
[2025-10-22] MEDS ORDERED: MORP20L SL (12:24)
[2025-10-22] MEDS ORDERED: TRANSDERM-SCOP1 EA13 TD (12:28)
--- NOTE | 2025-10-22 13:40 | NUR ---
SHIFT SUMMARY- PATIENT IS DISCHARGED TO HOME ON HOSPICE VIA AMBULANCE TRANSPORT. IVS REMOVED. DISCHARGE INSTRUCTIONS ARE IN THE PATIENT S BELONGINGS BAG FOR THE FAMILY TO REVIEW.
== END 2025-10-22 12:58 | disposition hospice, home (50) | DRG 177 ==
LOC: ER 03:51 → MEDS 03:52 → ENPENDDIS 10-22 10:47 → MEDS 10-22 12:58
PROVIDERS: Emergency Medicine; Internal Medicine; ADMIT Student in an Organized Health Care Education/Training Program
DX: J69.0 Pneumonitis due to inhalation of food and vomit (principal); J80 Acute respiratory distress syndrome; I50.32 Chronic diastolic (congestive) heart failure; I13.0 Hypertensive heart and chronic kidney disease with heart failure and stage 1 through stage 4 chronic kidney disease, or unspecified chronic kidney disease; Z66 Do not resuscitate; Z51.5 Encounter for palliative care; J18.9 Pneumonia, unspecified organism; G30.9 Alzheimer's disease, unspecified; F02.80 Dementia in other diseases classified elsewhere, unspecified severity, without behavioral disturbance, psychotic disturbance, mood disturbance, and anxiety; M06.9 Rheumatoid arthritis, unspecified; J45.909 Unspecified asthma, uncomplicated; K21.9 Gastro-esophageal reflux disease without esophagitis; M19.90 Unspecified osteoarthritis, unspecified site; E83.52 Hypercalcemia; E86.0 Dehydration; G40.909 Epilepsy, unspecified, not intractable, without status epilepticus; N18.30 Chronic kidney disease, stage 3 unspecified; Z86.718 Personal history of other venous thrombosis and embolism; Z86.711 Personal history of pulmonary embolism; Z79.82 Long term (current) use of aspirin; Z79.899 Other long term (current) drug therapy
CPT/HCPCS: 36415; 71045; 71260; 80048; 80053; 82330; 82803; 82947; 83605; 83880; 84145; 84484; 85025; 85379; 87040; 87428-QW; 92610; 93005; 93010; 94640; 94664; 94762; 96361; 96365; 96366; 96367; 96372; 96375; 96376; 99285-25; A6590; A9270; G0378; J0295; J0456; J0696; J1650; J1938; J1953; J2060; J2270; J2405; J2919; J7030; J7050; J7120; Q9967